=== PATIENT | male | born 1945 | race Caucasian/White ===

== ENCOUNTER 2024-09-10 17:20 | Inpatient (IN) | payer OTHER ==
[~2024-09-10] VITALS: Ht 167.6 cm; Wt 67.1 kg
[2024-09-10 18:38] LABS: BASOPHILS % (AUTO) 0.1 % (0.0-2.0); HEMATOCRIT 28 % (39-51); HEMOGLOBIN 9.6 g/dL (13.5-17.5); LYMPHOCYTES # (AUTO) 0.3 K/uL (0.8-4.8); LYMPHOCYTES % (AUTO) 2.3 % (20.0-44.0); MEAN CORPUSCULAR HEMOGLOBIN 33 PG (26.0-33.0); MEAN CORPUSCULAR HGB CONC 34 g/dl (31.0-36.0); MEAN CORPUSCULAR VOLUME 95 fL (80-96); MONOCYTES # (AUTO) 0.2 K/uL (0.1-1.30); MONOCYTES % (AUTO) 1.5 % (2.0-12.0); NEUTROPHILS # (AUTO) 12.7 K/uL (1.8-8.9); NEUTROPHILS % (AUTO) 96.1 % (43.0-81.0); PLATELET COUNT (AUTO) 133 K/uL (150-450); RED BLOOD CELL COUNT(AUTO) 2.93 MIL/uL (4.5-6.0); WHITE BLOOD COUNT (AUTO) 13.2 K/uL (4.3-11.0)
[2024-09-10 18:52] LABS: INR 1.06 (0.91-1.10); PARTIAL THROMBOPLASTIN TIME 31.8 SEC (24.3-34.3); PROTHROMBIN TIME 11.2 SECS (9.2-11.1)
[2024-09-10 19:01] LABS: ALBUMIN 2.2 g/dL (3.4-5.0); BILIRUBIN,DIRECT 0.1 mg/dL (0.0-0.2); BILIRUBIN,TOTAL 0.2 mg/dL (0.2-1.0); TOTAL PROTEIN, SERUM 6.4 g/dL (6.4-8.2)
[2024-09-10 19:02] LABS: LACTIC ACID 1.8 mmol/L (0.4-2.0)
[2024-09-10] MEDS: IV NS 0.9% 1,000 ML BAG IV ONE (19:40)
[2024-09-10] MEDS ORDERED: CEFEPIME 1 GM VIAL ONE (19:46)
[2024-09-10] MEDS: CEFEPIME 1 GM in IV D5W 50 ML IV ONE (19:50)
[2024-09-10] MEDS ORDERED: OSELTAMIVIR PHOSPHATE 75 MG CAPSULE ONE (20:33)
[2024-09-10] MEDS ORDERED: VANCOMYCIN 1 GM /D5W 250 ML PB IV ONE (20:33)
[2024-09-10] MEDS: VANCOMYCIN 1 GM in IV D5W 250 ML IV ONE (20:45)
[2024-09-10] MEDS: OSELTAMIVIR PHOSPHATE 75 MG CAPSULE PO ONE (20:50)
[2024-09-10 20:55] VITALS: O2SAT 88; O2SAT 90
[2024-09-10 21:31] LABS: ABG BASE EXCESS -11.3 mmol/L (-2.0-3.0); ABG OXYGEN SATURATION 84.7 % (94.0-98.0); ABG PCO2 30.4 mmHg (35.0-48.0); ABG PH 7.286 (7.350-7.450); ABG PO2 50.8 mmHg (83.0-108.0); ABG TOTAL HEMOGLOBIN 10.3 G/dL (13.5-17.5); COHb 0.2 % (0.5-1.5); O2Hb 84.5 % (94.0-97.0); SITE, ABG LEFT RADIAL
[2024-09-10 21:43] LABS: APPEARANCE,URINE CLEAR (CLEAR); BILIRUBIN,URINE NEGATIVE (NEGATIVE); BLOOD, URINE TRACE-INTA Ery/uL (NEGATIVE); COLOR,URINE YELLOW (YELLOW); KETONES,URINE NEGATIVE (NEGATIVE); LEUKOCYTE ESTERASE ,URINE NEGATIVE (NEGATIVE); NITRITE, URINE NEGATIVE (NEGATIVE); PH,URINE 5.5 (5.0-8.0); PROTEIN,URINE 2+ mg/dl (NEGATIVE); UGLUCOSE 1+ mg/dL (NEGATIVE); UROBILINOGEN,URINE 0.2 EU/dL (0.2)
[2024-09-10 21:44] LABS: ADD URINE CULTURE NO; BACTERIA,URINE Few /HPF (None Seen); SQUAMOUS EPITHELIAL CELL,UR Rare /HPF (None Seen); WBC,URINE 0-2 /HPF (0-3)
[2024-09-10 22:10] VITALS: O2SAT 90
[2024-09-10 22:23] LABS: ABG BASE EXCESS -11.1 mmol/L (-2.0-3.0); ABG OXYGEN SATURATION 88.8 % (94.0-98.0); ABG PCO2 31.2 mmHg (35.0-48.0); ABG PH 7.283 (7.350-7.450); ABG PO2 58.7 mmHg (83.0-108.0); ABG TOTAL HEMOGLOBIN 10.1 G/dL (13.5-17.5); COHb 0.2 % (0.5-1.5); MetHb 0.3 % (0.0-1.5); O2Hb 88.4 % (94.0-97.0)
[2024-09-10] MEDS ORDERED: ONDANSETRON HCL/PF 4 MG/2 ML VIAL IVP PRN (23:00)
[2024-09-10] MEDS ORDERED: DEXTROSE 50%-WATER 50 ML DISP.SYRIN IV PRN (23:00)
[2024-09-10 23:43] VITALS: O2SAT 90
[2024-09-11] VITALS (17 sets, daily range): BP systolic 101–152; BP diastolic 49–72; TEMP 97.4; O2SAT 89–98
[2024-09-11] MEDS ORDERED: ENOXAPARIN SODIUM 30 MG/0.3 ML DISP.SYRIN ONE (00:16)
[2024-09-11] MEDS: ENOXAPARIN SODIUM 30 MG/0.3 ML DISP.SYRIN SQ SCH (00:17)
[2024-09-11] MEDS: BLOOD SUGAR DIAGNOSTIC 1 EACH STRIP IN SCH (00:21)
[2024-09-11] MEDS: INSULIN REGULAR, HUMAN 100 UNIT/ML 3 ML VIAL SQ PRN (01:01)
[2024-09-11 06:46] LABS: HEMATOCRIT 29 % (39-51); HEMOGLOBIN 9.7 g/dL (13.5-17.5); LYMPHOCYTES # (AUTO) 0.3 K/uL (0.8-4.8); LYMPHOCYTES % (AUTO) 1.6 % (20.0-44.0); MEAN CORPUSCULAR HEMOGLOBIN 32 PG (26.0-33.0); MEAN CORPUSCULAR HGB CONC 33 g/dl (31.0-36.0); MEAN CORPUSCULAR VOLUME 96 fL (80-96); MONOCYTES # (AUTO) 0.2 K/uL (0.1-1.30); MONOCYTES % (AUTO) 1.2 % (2.0-12.0); NEUTROPHILS # (AUTO) 16.9 K/uL (1.8-8.9); NEUTROPHILS % (AUTO) 97.2 % (43.0-81.0); PLATELET COUNT (AUTO) 141 K/uL (150-450); RED BLOOD CELL COUNT(AUTO) 3.06 MIL/uL (4.5-6.0); RED CELL DISTRIBUTION WIDTH 16.3 % (11.5-15.0); WHITE BLOOD COUNT (AUTO) 17.4 K/uL (4.3-11.0)
[2024-09-11 07:09] LABS: ALANINE AMINOTRANSFERASE 43 U/L (12-78); ALBUMIN 1.9 g/dL (3.4-5.0); ALKALINE PHOSPHATASE 93 U/L (46-116); BILIRUBIN,DIRECT 0.1 mg/dL (0.0-0.2); BILIRUBIN,TOTAL 1.3 mg/dL (0.2-1.0); CALCIUM, SERUM 8.6 mg/dL (8.5-10.1); CARBON DIOXIDE 20 mmol/L (21-32); CHLORIDE 102 mmol/L (98-107); CREATININE 2.9 mg/dL (0.6-1.3); GLUCOSE 141 mg/dL (74-106); NT-PRO BNP 13910 pg/mL (0-125); PHOSPHORUS 5.8 mg/dL (2.5-4.9); SODIUM SERUM 131 mmol/L (136-145); TOTAL PROTEIN, SERUM 6.1 g/dL (6.4-8.2)
[2024-09-11 07:10] LABS: UREA NITROGEN, BLOOD 87 mg/dL (7-18)
[2024-09-11] MEDS: CEFEPIME 2 GM in IV D5W 100 ML IV SCH (08:50)
[2024-09-11] MEDS ORDERED: PANTOPRAZOLE 40 MG VIAL ONE (09:01)
[2024-09-11] MEDS: PANTOPRAZOLE 40 MG VIAL IV SCH (09:08)
[2024-09-11 09:09] LABS: ASPARTATE AMINOTRANSFERASE 78 U/L (15-37)
[2024-09-11 10:06] LABS: ABG BASE EXCESS -12.2 mmol/L (-2.0-3.0); ABG OXYGEN SATURATION 91.1 % (94.0-98.0); ABG PCO2 29.5 mmHg (35.0-48.0); ABG PH 7.274 (7.350-7.450); ABG PO2 63.5 mmHg (83.0-108.0); ABG TOTAL HEMOGLOBIN 10.7 G/dL (13.5-17.5); COHb 0.2 % (0.5-1.5); MetHb 0.3 % (0.0-1.5); O2Hb 90.6 % (94.0-97.0); SITE, ABG LEFT RADIAL
[2024-09-11] MEDS ORDERED: CLOP75TA15 PO (10:58)
[2024-09-11] MEDS ORDERED: ASCO-352 PO (10:58)
[2024-09-11] MEDS ORDERED: ATOR20TA PO (10:58)
[2024-09-11] MEDS ORDERED: CHOL200059 PO (10:58)
[2024-09-11] MEDS ORDERED: INSU100I30 SQ (10:58)
[2024-09-11] MEDS ORDERED: ACET325T53 PO (10:58)
[2024-09-11] MEDS ORDERED: FERR325T24 PO (10:58)
[2024-09-11] MEDS ORDERED: FOLI0.8T43 PO (10:58)
[2024-09-11] MEDS ORDERED: THIA100T88 PO (10:58)
[2024-09-11] MEDS ORDERED: LINA5TAB PO (10:58)
[2024-09-11] MEDS ORDERED: TIMO5DRO35 RIGHTEYE (10:58)
[2024-09-11] MEDS ORDERED: SODI325T PO (10:58)
[2024-09-11] MEDS ORDERED: GLIP10TA11 PO (10:58)
[2024-09-11] MEDS ORDERED: AMLO-213 PO (10:58)
[2024-09-11] MEDS ORDERED: GABA-532 PO (10:58)
[2024-09-11] MEDS ORDERED: INSU100V3 SQ (10:58)
[2024-09-11] MEDS ORDERED: NATE120T6 PO (10:58)
[2024-09-11] MEDS ORDERED: AZIT500T4 PO (10:58)
[2024-09-11] MEDS ORDERED: FUROSEMIDE 40 MG/4 ML VIAL ONE ×3 (11:40→19:29)
[2024-09-11] MEDS: FUROSEMIDE 100 MG/10 ML VIAL IV SCH (11:44)
[2024-09-11 12:14] LABS: ANISOCYTOSIS 1+; BAND % (MANUAL) 10 % (0.0-5.0); LYMPHOCYTES % (MANUAL) 3 % (16-48); MONOCYTES % (MANUAL) 1 % (0-11.0); NEUTROPHILS % (MANUAL) 86 (42-76); PLATELET ESTIMATE DECREASED
[2024-09-11] MEDS: OSELTAMIVIR PHOSPHATE SUSP 6 MG/ML BOTTLE PO SCH (14:00)
[2024-09-12] VITALS (37 sets, daily range): BP systolic 94–150; BP diastolic 42–89; TEMP 97.6–98.2; O2SAT 83–100
[2024-09-12 04:03] LABS: BASOPHILS % (AUTO) 0.1 % (0.0-2.0); HEMATOCRIT 29 % (39-51); HEMOGLOBIN 9.7 g/dL (13.5-17.5); LYMPHOCYTES # (AUTO) 0.4 K/uL (0.8-4.8); LYMPHOCYTES % (AUTO) 1.4 % (20.0-44.0); MEAN CORPUSCULAR HEMOGLOBIN 31 PG (26.0-33.0); MEAN CORPUSCULAR HGB CONC 33 g/dl (31.0-36.0); MEAN CORPUSCULAR VOLUME 95 fL (80-96); MONOCYTES # (AUTO) 0.6 K/uL (0.1-1.30); MONOCYTES % (AUTO) 2.2 % (2.0-12.0); NEUTROPHILS # (AUTO) 24.5 K/uL (1.8-8.9); NEUTROPHILS % (AUTO) 96.3 % (43.0-81.0); PLATELET COUNT (AUTO) 156 K/uL (150-450); RED BLOOD CELL COUNT(AUTO) 3.07 MIL/uL (4.5-6.0); RED CELL DISTRIBUTION WIDTH 16.5 % (11.5-15.0); WHITE BLOOD COUNT (AUTO) 25.5 K/uL (4.3-11.0)
[2024-09-12 04:16] LABS: ALBUMIN 1.9 g/dL (3.4-5.0); BILIRUBIN,TOTAL 0.3 mg/dL (0.2-1.0); CALCIUM, SERUM 8.6 mg/dL (8.5-10.1); CREATININE 3.2 mg/dL (0.6-1.3); MAGNESIUM 2.2 mg/dL (1.8-2.4); PHOSPHORUS 6.7 mg/dL (2.5-4.9); POTASSIUM 4.5 mmol/L (3.5-5.1); TOTAL PROTEIN, SERUM 6.3 g/dL (6.4-8.2)
[2024-09-12 07:32] LABS: APPEARANCE,URINE CLEAR (CLEAR); BILIRUBIN,URINE NEGATIVE (NEGATIVE); BLOOD, URINE 1+ Ery/uL (NEGATIVE); COLOR,URINE YELLOW (YELLOW); KETONES,URINE NEGATIVE (NEGATIVE); LEUKOCYTE ESTERASE ,URINE NEGATIVE (NEGATIVE); NITRITE, URINE NEGATIVE (NEGATIVE); PH,URINE 5.5 (5.0-8.0); PROTEIN,URINE TRACE mg/dl (NEGATIVE); UGLUCOSE NEGATIVE (NEGATIVE); UROBILINOGEN,URINE 0.2 EU/dL (0.2)
[2024-09-12 07:46] LABS: ADD URINE CULTURE NO; BACTERIA,URINE Rare /HPF (None Seen); SQUAMOUS EPITHELIAL CELL,UR Few /HPF (None Seen); URINE AMORPHOUS URATE Few /HPF (None Seen); WBC,URINE 0-2 /HPF (0-3)
[2024-09-12 08:02] LABS: EOSINOPHIL,URINE None Seen
[2024-09-12 08:14] LABS: CREATININE, URINE 17.3 MG/DL (30.0-125.0); URINE TOTAL PROTEIN 41.1 mg/dL (0-11.9)
[2024-09-12] MEDS ORDERED: VANCOMYCIN 1 GM in IV D5W 250ml IV SCH (09:00)
[2024-09-12] MEDS: methylPREDNISolone SOD SUCC 125 MG/2ML VIAL IV SCH (17:13)
[2024-09-12] MEDS: IV NS 0.9% 250 ML IV PRN (18:25)
[2024-09-12 18:43] LABS: INR 1.03 (0.91-1.10); PARTIAL THROMBOPLASTIN TIME 36.8 SEC (24.3-34.3); PROTHROMBIN TIME 10.9 SECS (9.2-11.1)
[2024-09-12] MEDS ORDERED: HEPARIN SODIUM,PORCINE/PF 50 UNIT/5 ML DISP.SYRIN IV ONE (19:30)
[2024-09-12] MEDS: VANCOMYCIN 1 GM in IV D5W 250ml IV SCH (20:00)
[2024-09-12] MEDS: HEPARIN INFUSION/D5W 500 ML IV PRN (20:46)
[2024-09-12] MEDS: HEPARIN SODIUM, PORCINE 5000 UNITS/1 ML VIAL IV ONE (20:46)
[2024-09-13] VITALS (27 sets, daily range): BP systolic 116–151; BP diastolic 53–94; TEMP 97.4–98.4; O2SAT 75–100
[2024-09-13 03:28] LABS: BASOPHILS # (AUTO) 0.1 K/uL (0.0-0.2); BASOPHILS % (AUTO) 0.5 % (0.0-2.0); HEMATOCRIT 31 % (39-51); HEMOGLOBIN 10.1 g/dL (13.5-17.5); LYMPHOCYTES # (AUTO) 0.1 K/uL (0.8-4.8); LYMPHOCYTES % (AUTO) 0.5 % (20.0-44.0); MEAN CORPUSCULAR HEMOGLOBIN 31 PG (26.0-33.0); MEAN CORPUSCULAR HGB CONC 32 g/dl (31.0-36.0); MEAN CORPUSCULAR VOLUME 97 fL (80-96); MONOCYTES # (AUTO) 0.6 K/uL (0.1-1.30); MONOCYTES % (AUTO) 2.1 % (2.0-12.0); NEUTROPHILS # (AUTO) 27.3 K/uL (1.8-8.9); NEUTROPHILS % (AUTO) 96.9 % (43.0-81.0); PLATELET COUNT (AUTO) 167 K/uL (150-450); RED BLOOD CELL COUNT(AUTO) 3.22 MIL/uL (4.5-6.0); WHITE BLOOD COUNT (AUTO) 28.1 K/uL (4.3-11.0)
[2024-09-13 03:38] LABS: CALCIUM, SERUM 8.4 mg/dL (8.5-10.1); CREATININE 3.6 mg/dL (0.6-1.3); MAGNESIUM 2.2 mg/dL (1.8-2.4)
[2024-09-13 03:47] LABS: PHOSPHORUS 8.3 mg/dL (2.5-4.9)
[2024-09-13 08:10] LABS: PTH, INTACT 165 pg/mL (15-65)
[2024-09-13] MEDS: CITRIC ACID/SODIUM CITRATE (BICITRA)15 ML UDC PO SCH (13:00)
[2024-09-13] MEDS: SEVELAMER CARBONATE 800 MG TABLET PO SCH (13:00)
[2024-09-13] MEDS: APIXABAN 5 MG TABLET PO SCH (20:34)
[2024-09-14] VITALS (32 sets, daily range): BP systolic 101–158; BP diastolic 34–103; TEMP 97.1–97.9; O2SAT 57–98
[2024-09-14 03:53] LABS: CALCIUM, SERUM 8.3 mg/dL (8.5-10.1); POTASSIUM 4.8 mmol/L (3.5-5.1)
[2024-09-14] MEDS: CEFEPIME 2 GM in IV D5W 100 ML IV SCH (08:14)
[2024-09-14 10:10] LABS: *SPE A/G RATIO 0.7 (0.7-1.7); *SPE ALBUMIN 2.3 g/dL (2.9-4.4); *SPE ALPHA-1-GLOBULIN 0.5 g/dL (0.0-0.4); *SPE BETA GLOBULIN 0.7 g/dL (0.7-1.3); *SPE GLOBULIN, TOTAL 3.1 g/dL (2.2-3.9); *SPE M-SPIKE Not Observed g/dL (Not Observed); *SPE PROTEIN TOTAL 5.4 g/dL (6.0-8.5); *SPEGAMMA GLOBULIN 0.9 g/dL (0.4-1.8)
[2024-09-14] MEDS: risperiDONE-M 0.5 MG TAB.RAPDIS PO SCH (12:30)
[2024-09-15] VITALS (35 sets, daily range): BP systolic 94–173; BP diastolic 42–107; TEMP 97.2–97.7; O2SAT 78–100
[2024-09-15 05:11] LABS: CALCIUM, SERUM 8.7 mg/dL (8.5-10.1); CREATININE 4.4 mg/dL (0.6-1.3); POTASSIUM 4.9 mmol/L (3.5-5.1)
[2024-09-15 05:26] LABS: ALBUMIN 1.8 g/dL (3.4-5.0); BILIRUBIN,DIRECT 0.1 mg/dL (0.0-0.2); BILIRUBIN,TOTAL 0.4 mg/dL (0.2-1.0); TOTAL PROTEIN, SERUM 6.6 g/dL (6.4-8.2)
[2024-09-15] MEDS: VALPROATE 125 MG in IV D5W 100 ML IV SCH (13:51)
[2024-09-15] MEDS: HEPARIN SODIUM, PORCINE 5000 UNITS/1 ML VIAL IV ONE (13:54)
[2024-09-15] MEDS: HEPARIN INFUSION/D5W 500 ML IV PRN (13:57)
[2024-09-15] MEDS: hydrALAZINE HCL IV 20 MG VIAL IV PRN (22:52)
[2024-09-16] VITALS (54 sets, daily range): BP systolic 89–186; BP diastolic 40–156; TEMP 97.2–98.2; O2SAT 74–99
[2024-09-16 05:40] LABS: CALCIUM, SERUM 8.9 mg/dL (8.5-10.1); CREATININE 2.9 mg/dL (0.6-1.3); POTASSIUM 3.6 mmol/L (3.5-5.1)
[2024-09-16] MEDS: Z GUARD REMEDY 4 OZ OINT TP PRN (08:14)
[2024-09-16 17:47] LABS: ABG BASE EXCESS 0.8 mmol/L (-2.0-3.0); ABG OXYGEN SATURATION 99.6 % (94.0-98.0); ABG PH 7.538 (7.350-7.450); ABG PO2 496.2 mmHg (83.0-108.0); ABG TOTAL HEMOGLOBIN 11.1 G/dL (13.5-17.5); COHb 0.3 % (0.5-1.5); MetHb 0.1 % (0.0-1.5); O2Hb 99.2 % (94.0-97.0); SITE, ABG RIGHT RADIAL
[2024-09-17] VITALS (87 sets, daily range): BP systolic 59–167; BP diastolic 40–106; TEMP 97.2–98.1; O2SAT 76–100
[2024-09-17 04:47] LABS: BASOPHILS # (AUTO) 0.1 K/uL (0.0-0.2); BASOPHILS % (AUTO) 0.4 % (0.0-2.0); HEMATOCRIT 30 % (39-51); HEMOGLOBIN 10.2 g/dL (13.5-17.5); LYMPHOCYTES # (AUTO) 0.1 K/uL (0.8-4.8); LYMPHOCYTES % (AUTO) 0.8 % (20.0-44.0); MEAN CORPUSCULAR HEMOGLOBIN 32 PG (26.0-33.0); MEAN CORPUSCULAR HGB CONC 34 g/dl (31.0-36.0); MEAN CORPUSCULAR VOLUME 94 fL (80-96); MONOCYTES # (AUTO) 0.4 K/uL (0.1-1.30); MONOCYTES % (AUTO) 2.1 % (2.0-12.0); NEUTROPHILS # (AUTO) 18.3 K/uL (1.8-8.9); NEUTROPHILS % (AUTO) 96.7 % (43.0-81.0); PLATELET COUNT (AUTO) 113 K/uL (150-450); RED CELL DISTRIBUTION WIDTH 16.6 % (11.5-15.0); WHITE BLOOD COUNT (AUTO) 18.9 K/uL (4.3-11.0)
[2024-09-17 05:04] LABS: CALCIUM, SERUM 8.8 mg/dL (8.5-10.1); CREATININE 2.8 mg/dL (0.6-1.3); MAGNESIUM 2.4 mg/dL (1.8-2.4); PHOSPHORUS 6.4 mg/dL (2.5-4.9)
[2024-09-17] MEDS: AMIODARONE 150 MG/3 ML VIAL IV ONE (05:27)
[2024-09-17] MEDS: AMIODARONE 150 MG in IV D5W 100 ML IV ONE (05:33)
[2024-09-17] MEDS: AMIODARONE 450 MG in IV D5W 241 ML IV PRN (05:49)
[2024-09-17] MEDS: ALBUMIN 25% 25 GM in PREMIX 1 EA IV PRN (22:33)
[2024-09-17] MEDS: VANCOMYCIN POST DIALYSIS 500MG IV PRN (23:40)
[2024-09-18] VITALS (68 sets, daily range): BP systolic 86–144; BP diastolic 38–63; TEMP 96.5–98; O2SAT 94–100
[2024-09-18 04:44] LABS: BILIRUBIN,TOTAL 0.7 mg/dL (0.2-1.0); CALCIUM, SERUM 7.9 mg/dL (8.5-10.1); PHOSPHORUS 7.4 mg/dL (2.5-4.9); POTASSIUM 4.2 mmol/L (3.5-5.1); TOTAL PROTEIN, SERUM 5.2 g/dL (6.4-8.2)
[2024-09-18 04:46] LABS: BASOPHILS # (AUTO) 0.1 K/uL (0.0-0.2); BASOPHILS % (AUTO) 0.3 % (0.0-2.0); LYMPHOCYTES # (AUTO) 0.2 K/uL (0.8-4.8); LYMPHOCYTES % (AUTO) 0.9 % (20.0-44.0); MEAN CORPUSCULAR HEMOGLOBIN 32 PG (26.0-33.0); MEAN CORPUSCULAR HGB CONC 34 g/dl (31.0-36.0); MEAN CORPUSCULAR VOLUME 94 fL (80-96); MONOCYTES # (AUTO) 0.4 K/uL (0.1-1.30); MONOCYTES % (AUTO) 1.5 % (2.0-12.0); NEUTROPHILS # (AUTO) 23.5 K/uL (1.8-8.9); NEUTROPHILS % (AUTO) 97.3 % (43.0-81.0); PLATELET COUNT (AUTO) 75 K/uL (150-450); RED CELL DISTRIBUTION WIDTH 16.4 % (11.5-15.0); WHITE BLOOD COUNT (AUTO) 24.1 K/uL (4.3-11.0)
[2024-09-18 05:14] LABS: HEMATOCRIT 18 % (39-51); HEMOGLOBIN 6.1 g/dL (13.5-17.5); RED BLOOD CELL COUNT(AUTO) 1.93 MIL/uL (4.5-6.0)
[2024-09-18 05:26] LABS: LYMPHOCYTES % (MANUAL) 1 % (16-48); MONOCYTES % (MANUAL) 1 % (0-11.0); NEUTROPHILS % (MANUAL) 98 (42-76); PLATELET ESTIMATE DECREASED
[2024-09-18 05:27] LABS: ANISOCYTOSIS 1+
[2024-09-18 07:17] LABS: BASOPHILS % (AUTO) 0.1 % (0.0-2.0); LYMPHOCYTES # (AUTO) 0.2 K/uL (0.8-4.8); LYMPHOCYTES % (AUTO) 0.9 % (20.0-44.0); MEAN CORPUSCULAR HEMOGLOBIN 31 PG (26.0-33.0); MEAN CORPUSCULAR HGB CONC 33 g/dl (31.0-36.0); MEAN CORPUSCULAR VOLUME 93 fL (80-96); MONOCYTES # (AUTO) 0.2 K/uL (0.1-1.30); MONOCYTES % (AUTO) 0.9 % (2.0-12.0); NEUTROPHILS # (AUTO) 23.3 K/uL (1.8-8.9); NEUTROPHILS % (AUTO) 98.1 % (43.0-81.0); PLATELET COUNT (AUTO) 83 K/uL (150-450); RED CELL DISTRIBUTION WIDTH 16.4 % (11.5-15.0); WHITE BLOOD COUNT (AUTO) 23.7 K/uL (4.3-11.0)
[2024-09-18 07:24] LABS: RED BLOOD CELL COUNT(AUTO) 1.79 MIL/uL (4.5-6.0)
[2024-09-18 07:26] LABS: HEMOGLOBIN 5.5 g/dL (13.5-17.5)
[2024-09-18 07:27] LABS: HEMATOCRIT 17 % (39-51)
[2024-09-18 07:41] LABS: ANISOCYTOSIS 1+; PLATELET ESTIMATE DECREASED
[2024-09-18 10:06] LABS: HEMOGLOBIN 5.3 g/dL (13.5-17.5)
[2024-09-18 12:49] LABS: BILIRUBIN,TOTAL 0.6 mg/dL (0.2-1.0)
[2024-09-18 21:58] LABS: HEMOGLOBIN 6.7 g/dL (13.5-17.5)
[2024-09-19] VITALS (50 sets, daily range): BP systolic 84–155; BP diastolic 38–65; TEMP 77.5–99.1; O2SAT 87–100
[2024-09-19 04:50] LABS: CREATININE 4.4 mg/dL (0.6-1.3)
[2024-09-19 04:54] LABS: HEMOGLOBIN 6.4 g/dL (13.5-17.5)
[2024-09-19 11:19] LABS: HEMOGLOBIN 6.1 g/dL (13.5-17.5)
[2024-09-19] MEDS ORDERED: ALBUMIN 25% 12.5 GM/50 ML BOTTLE IV ONE (12:30)
[2024-09-19] MEDS: VALPROATE 250 MG in IV D5W 100 ML IV SCH (14:03)
[2024-09-19] MEDS: PANTOPRAZOLE 40 MG VIAL IV SCH (15:21)
[2024-09-19] MEDS: EPOETIN ALFA (10,000 UNIT) 10,000 UNIT/ML VIAL SQ SCH (16:18)
[2024-09-19 19:03] LABS: HEMOGLOBIN 7.4 g/dL (13.5-17.5)
[2024-09-19] MEDS: METRONIDAZOLE 500MG/ NS 100ML 500 MG in PREMIX 1 EA IV SCH (20:26)
[2024-09-20] VITALS (30 sets, daily range): BP systolic 108–171; BP diastolic 41–79; TEMP 97.7–98.1; O2SAT 82–100
[2024-09-20 02:33] LABS: HEMOGLOBIN 7.2 g/dL (13.5-17.5)
[2024-09-20 05:03] LABS: ALBUMIN 2.1 g/dL (3.4-5.0); BILIRUBIN,TOTAL 0.6 mg/dL (0.2-1.0); CALCIUM, SERUM 7.3 mg/dL (8.5-10.1); CREATININE 3.9 mg/dL (0.6-1.3); POTASSIUM 4.5 mmol/L (3.5-5.1)
[2024-09-20 10:36] LABS: HEMOGLOBIN 7.4 g/dL (13.5-17.5)
[2024-09-20 17:39] LABS: BASOPHILS % (AUTO) 0.1 % (0.0-2.0); HEMATOCRIT 21 % (39-51); HEMOGLOBIN 7.5 g/dL (13.5-17.5); LYMPHOCYTES # (AUTO) 0.1 K/uL (0.8-4.8); LYMPHOCYTES % (AUTO) 0.4 % (20.0-44.0); MEAN CORPUSCULAR HEMOGLOBIN 33 PG (26.0-33.0); MEAN CORPUSCULAR HGB CONC 36 g/dl (31.0-36.0); MEAN CORPUSCULAR VOLUME 92 fL (80-96); MONOCYTES # (AUTO) 0.6 K/uL (0.1-1.30); MONOCYTES % (AUTO) 2.3 % (2.0-12.0); NEUTROPHILS % (AUTO) 97.2 % (43.0-81.0); RED BLOOD CELL COUNT(AUTO) 2.31 MIL/uL (4.5-6.0); RED CELL DISTRIBUTION WIDTH 15.4 % (11.5-15.0); WHITE BLOOD COUNT (AUTO) 26.8 K/uL (4.3-11.0)
[2024-09-20 17:56] LABS: RHEUMATOID FACTOR SCREEN NEGATIVE (NEGATIVE)
[2024-09-20 18:00] LABS: FIBRINOGEN ACTIVITY 159 Mg/dL (213-485); PARTIAL THROMBOPLASTIN TIME 33.3 SEC (24.3-34.3); PROTHROMBIN TIME 13.5 SECS (9.2-11.1)
[2024-09-20 18:03] LABS: D-DIMER > 35.20 mg/L(FEU (0.17-0.50)
[2024-09-20 18:07] LABS: IRON, SERUM 25 ug/dl (50-175); PLATELET COUNT (AUTO) 40 K/uL (150-450); TOTAL IRON BINDING CAPACITY 99 ug/dl (250-450)
[2024-09-20 18:47] LABS: FERRITIN 2575 ng/mL (8-388)
[2024-09-20 18:53] LABS: BAND % (MANUAL) 1 % (0.0-5.0); NEUTROPHILS % (MANUAL) 93 (42-76)
[2024-09-20 18:54] LABS: LYMPHOCYTES % (MANUAL) 5 % (16-48); MONOCYTES % (MANUAL) 1 % (0-11.0); PLATELET ESTIMATE DECREASED
[2024-09-20 18:55] LABS: ANISOCYTOSIS 1+; HYPOCHROMASIA 1+
[2024-09-21] VITALS (7 sets, daily range): BP systolic 140–156; BP diastolic 48–61; TEMP 97.5–98.2; O2SAT 92–99
[2024-09-21 07:49] LABS: CALCIUM, SERUM 7.7 mg/dL (8.5-10.1); CREATININE 3.5 mg/dL (0.6-1.3); POTASSIUM 4.6 mmol/L (3.5-5.1)
[2024-09-21 14:58] LABS: HEMOGLOBIN 7.4 g/dL (13.5-17.5)
[2024-09-21 17:39] LABS: BASOPHILS % (AUTO) 0.1 % (0.0-2.0); HEMATOCRIT 22 % (39-51); HEMOGLOBIN 7.3 g/dL (13.5-17.5); LYMPHOCYTES # (AUTO) 0.1 K/uL (0.8-4.8); LYMPHOCYTES % (AUTO) 0.3 % (20.0-44.0); MEAN CORPUSCULAR HEMOGLOBIN 31 PG (26.0-33.0); MEAN CORPUSCULAR HGB CONC 34 g/dl (31.0-36.0); MEAN CORPUSCULAR VOLUME 93 fL (80-96); MONOCYTES # (AUTO) 0.7 K/uL (0.1-1.30); MONOCYTES % (AUTO) 3.2 % (2.0-12.0); NEUTROPHILS # (AUTO) 20.2 K/uL (1.8-8.9); NEUTROPHILS % (AUTO) 96.4 % (43.0-81.0); RED BLOOD CELL COUNT(AUTO) 2.34 MIL/uL (4.5-6.0); RED CELL DISTRIBUTION WIDTH 15.4 % (11.5-15.0); WHITE BLOOD COUNT (AUTO) 20.9 K/uL (4.3-11.0)
[2024-09-21 17:55] LABS: PLATELET COUNT (AUTO) 48 K/uL (150-450)
[2024-09-21 21:00] LABS: ANISOCYTOSIS 1+; BAND % (MANUAL) 1 % (0.0-5.0); LYMPHOCYTES % (MANUAL) 3 % (16-48); MONOCYTES % (MANUAL) 2 % (0-11.0); NEUTROPHILS % (MANUAL) 94 (42-76); PLATELET ESTIMATE DECREASED
[2024-09-22] VITALS (9 sets, daily range): BP systolic 129–159; BP diastolic 41–60; TEMP 97.4–98.2; O2SAT 95–100
[2024-09-22 06:09] LABS: IMMUNOGLOBULIN A, SERUM 191 mg/dL (61-437); IMMUNOGLOBULIN G, SERUM 741 mg/dL (603-1613); IMMUNOGLOBULIN M, SERUM 90 mg/dL (15-143)
[2024-09-22 07:42] LABS: CALCIUM, SERUM 7.6 mg/dL (8.5-10.1); CREATININE 4.5 mg/dL (0.6-1.3); POTASSIUM 5.1 mmol/L (3.5-5.1)
[2024-09-22 07:55] LABS: BASOPHILS # (AUTO) 0.1 K/uL (0.0-0.2); BASOPHILS % (AUTO) 0.4 % (0.0-2.0); HEMATOCRIT 22 % (39-51); HEMOGLOBIN 7.2 g/dL (13.5-17.5); LYMPHOCYTES # (AUTO) 0.1 K/uL (0.8-4.8); LYMPHOCYTES % (AUTO) 0.3 % (20.0-44.0); MEAN CORPUSCULAR HEMOGLOBIN 31 PG (26.0-33.0); MEAN CORPUSCULAR HGB CONC 33 g/dl (31.0-36.0); MEAN CORPUSCULAR VOLUME 95 fL (80-96); MONOCYTES # (AUTO) 0.5 K/uL (0.1-1.30); NEUTROPHILS # (AUTO) 21.9 K/uL (1.8-8.9); NEUTROPHILS % (AUTO) 97.3 % (43.0-81.0); PLATELET COUNT (AUTO) 61 K/uL (150-450); RED CELL DISTRIBUTION WIDTH 15.4 % (11.5-15.0); WHITE BLOOD COUNT (AUTO) 22.5 K/uL (4.3-11.0)
[2024-09-22 08:05] LABS: INR 1.3 (0.91-1.10); PARTIAL THROMBOPLASTIN TIME 28.8 SEC (24.3-34.3); PROTHROMBIN TIME 13.5 SECS (9.2-11.1)
[2024-09-22 08:10] LABS: *ANA ANTI-CENTROMERE B AB <0.2 AI (0.0-0.9); *ANA ANTI-DNA(DS) AB, QN <1 IU/mL (0-9); *ANA ANTI-JO-1 <0.2 AI (0.0-0.9); *ANA ANTICHROMATIN ANTIBODY <0.2 AI (0.0-0.9); *ANA RNP ANTIBODIES <0.2 AI (0.0-0.9); *ANA SJOGREN'S ANTI-SS-A 0.2 AI (0.0-0.9); *ANA SJOGREN'S ANTI-SS-B <0.2 AI (0.0-0.9); *ANAANTI-SCLERODERMA-70 AB <0.2 AI (0.0-0.9); *ANASMITH AB <0.2 AI (0.0-0.9)
[2024-09-22 08:20] LABS: D-DIMER 14.6 mg/L(FEU (0.17-0.50)
[2024-09-22 09:07] LABS: FOLIC ACID 15.4 ng/mL (>3.0)
[2024-09-22] MEDS ORDERED: IOHEXOL-300 100 ML VIAL IV ONE (10:46)
[2024-09-22] MEDS ORDERED: CT SWABBABLE VALVE TRANS SET 1 EA INFUS.SET MC ONE (10:46)
[2024-09-22] MEDS ORDERED: IV NS 0.9% 250 ML IV ONE (10:48)
[2024-09-22 10:59] LABS: ANISOCYTOSIS 1+; LYMPHOCYTES % (MANUAL) 1 % (16-48); MONOCYTES % (MANUAL) 3 % (0-11.0); MYELOCYTES % 1 % (0-0); NEUTROPHILS % (MANUAL) 95 (42-76); PLATELET ESTIMATE DECREASED
[2024-09-22] MEDS: LORAZEPAM INJ 2 MG/ML VIAL IV ONE (11:13)
[2024-09-22] MEDS: methylPREDNISolone SOD SUCC 125 MG/2ML VIAL IV SCH (12:41)
[2024-09-22] MEDS ORDERED: IOHEXOL 240MG/ML 0 ML IV ONE (14:47)
[2024-09-22] MEDS ORDERED: HEPARIN SODIUM, PORCINE 1,000 UNIT/ML VIAL ONE (14:47)
[2024-09-22] MEDS ORDERED: LIDOCAINE 1% INJ 50 ML MDV IJ ONE (14:48)
[2024-09-22] MEDS: ACETAMINOPHEN 325 MG TABLET PO ONE ×2 (15:30→21:25)
[2024-09-22] MEDS: diphenhydrAMINE HCL 50 MG/ML VIAL IV ONE ×2 (15:30→21:24)
[2024-09-22] MEDS ORDERED: PHARMACY TO CHANGE PO MEDS TO GT/NG XX PRN (17:00)
[2024-09-22] MEDS ORDERED: FERROUS SULFATE UDC 300 MG/5 ML UDC GT SCH (17:00)
[2024-09-22] MEDS ORDERED: glipiZIDE 10 MG TABLET GT SCH (17:00)
[2024-09-22] MEDS: glipiZIDE 10 MG TABLET NG SCH (18:12)
[2024-09-22] MEDS: FERROUS SULFATE UDC 300 MG/5 ML UDC NG SCH (18:13)
[2024-09-22] MEDS: NATEGLINIDE 60 MG TABLET NG SCH (18:13)
[2024-09-22] MEDS: SEVELAMER CARBONATE 800 MG POWD.PACK NG SCH (18:13)
[2024-09-22] MEDS: ATORVASTATIN 10 MG TABLET NG SCH (21:45)
[2024-09-22] MEDS: GABAPENTIN 100 MG CAPSULE NG SCH (21:45)
[2024-09-22] MEDS: INSULIN GLARGINE, 100 UNIT/ML CARTRIDGE SQ SCH (23:11)
[2024-09-22] MEDS ORDERED: CEFEPIME 1 GM VIAL ONE (23:48)
[2024-09-22] MEDS: CEFEPIME 1 GM in IV D5W 50 ML IV SCH (23:50)
[2024-09-23] VITALS (9 sets, daily range): BP systolic 120–146; BP diastolic 47–68; TEMP 97.5–98.6; O2SAT 96–100
[2024-09-23 07:18] LABS: BASOPHILS # (AUTO) 0.1 K/uL (0.0-0.2); BASOPHILS % (AUTO) 0.3 % (0.0-2.0); CALCIUM, SERUM 7.8 mg/dL (8.5-10.1); CREATININE 3.8 mg/dL (0.6-1.3); HEMATOCRIT 22 % (39-51); HEMOGLOBIN 7.1 g/dL (13.5-17.5); LYMPHOCYTES # (AUTO) 0.2 K/uL (0.8-4.8); LYMPHOCYTES % (AUTO) 0.7 % (20.0-44.0); MEAN CORPUSCULAR HEMOGLOBIN 32 PG (26.0-33.0); MEAN CORPUSCULAR HGB CONC 32 g/dl (31.0-36.0); MEAN CORPUSCULAR VOLUME 97 fL (80-96); MONOCYTES # (AUTO) 1.4 K/uL (0.1-1.30); MONOCYTES % (AUTO) 5.1 % (2.0-12.0); NEUTROPHILS # (AUTO) 25.3 K/uL (1.8-8.9); NEUTROPHILS % (AUTO) 93.9 % (43.0-81.0); PLATELET COUNT (AUTO) 59 K/uL (150-450); POTASSIUM 4.2 mmol/L (3.5-5.1); RED BLOOD CELL COUNT(AUTO) 2.24 MIL/uL (4.5-6.0); RED CELL DISTRIBUTION WIDTH 16.1 % (11.5-15.0)
[2024-09-23] MEDS: VIT B CMPLX 3/FA/VIT C/BIOTIN 1 TAB TABLET NG SCH (08:20)
[2024-09-23] MEDS: ASCORBIC ACID 500 MG TABLET NG SCH (08:20)
[2024-09-23] MEDS: CHOLECALCIFEROL 1,000 UNIT TABLET (VIT D3) NG SCH (08:21)
[2024-09-23] MEDS: LINAGLIPTIN 5 MG TABLET NG SCH (08:21)
[2024-09-23] MEDS: THIAMINE HCL 100 MG TABLET NG SCH (08:22)
[2024-09-23] MEDS: AMLODIPINE BESYLATE 10 MG TABLET NG SCH (08:22)
[2024-09-23] MEDS: TIMOLOL 0.5% SOLN OPHTH 5 ML BOTTLE RIGHTEYE SCH (08:35)
[2024-09-23] MEDS: AMIODARONE HCL 200 MG TABLET NG SCH (09:27)
[2024-09-23] MEDS: NEPRO 1,000 ML BOTTLE GT PRN (09:59)
[2024-09-23 11:06] LABS: FREE KAPPA LT CHAINS SERUM 97.1 mg/L (3.3-19.4); FREE LAMBDA LT CHAIN SERUM 123.5 mg/L (5.7-26.3); KAPPA/LAMBDA RATIO SERUM 0.79 (0.26-1.65)
[2024-09-23 11:50] LABS: INR 1.41 (0.91-1.10); PARTIAL THROMBOPLASTIN TIME 29.6 SEC (24.3-34.3); PROTHROMBIN TIME 14.6 SECS (9.2-11.1)
[2024-09-23 11:53] LABS: D-DIMER 22.44 mg/L(FEU (0.17-0.50)
[2024-09-23 12:42] LABS: ANISOCYTOSIS 1+; LYMPHOCYTES % (MANUAL) 1 % (16-48); MONOCYTES % (MANUAL) 5 % (0-11.0); NEUTROPHILS % (MANUAL) 94 (42-76); PLATELET ESTIMATE DECREASED
[2024-09-23] MEDS: ALTEPLASE CATHFLO 2 MG/VIAL XX ONE (14:11)
[2024-09-23] MEDS: EPOETIN ALFA (10,000 UNIT) 10,000 UNIT/ML VIAL SQ SCH (14:26)
[2024-09-23 16:25] LABS: HEMOGLOBIN 6.8 g/dL (13.5-17.5)
[2024-09-24] VITALS (8 sets, daily range): BP systolic 116–139; BP diastolic 49–63; TEMP 97.3–98.1; O2SAT 98–100
[2024-09-24 07:26] LABS: INR 1.36 (0.91-1.10); PARTIAL THROMBOPLASTIN TIME 30.1 SEC (24.3-34.3); PROTHROMBIN TIME 14.1 SECS (9.2-11.1)
[2024-09-24 07:33] LABS: BASOPHILS # (AUTO) 0.1 K/uL (0.0-0.2); BASOPHILS % (AUTO) 0.2 % (0.0-2.0); HEMATOCRIT 23 % (39-51); HEMOGLOBIN 7.9 g/dL (13.5-17.5); LYMPHOCYTES # (AUTO) 0.2 K/uL (0.8-4.8); LYMPHOCYTES % (AUTO) 0.8 % (20.0-44.0); MEAN CORPUSCULAR HEMOGLOBIN 32 PG (26.0-33.0); MEAN CORPUSCULAR HGB CONC 34 g/dl (31.0-36.0); MEAN CORPUSCULAR VOLUME 96 fL (80-96); MONOCYTES # (AUTO) 1.2 K/uL (0.1-1.30); MONOCYTES % (AUTO) 5.1 % (2.0-12.0); NEUTROPHILS # (AUTO) 21.8 K/uL (1.8-8.9); NEUTROPHILS % (AUTO) 93.9 % (43.0-81.0); PLATELET COUNT (AUTO) 55 K/uL (150-450); RED BLOOD CELL COUNT(AUTO) 2.45 MIL/uL (4.5-6.0); RED CELL DISTRIBUTION WIDTH 15.2 % (11.5-15.0); WHITE BLOOD COUNT (AUTO) 23.2 K/uL (4.3-11.0)
[2024-09-24 07:38] LABS: CREATININE 4.5 mg/dL (0.6-1.3); POTASSIUM 4.6 mmol/L (3.5-5.1)
[2024-09-24 07:40] LABS: D-DIMER 22.83 mg/L(FEU (0.17-0.50)
[2024-09-24] MEDS: PANTOPRAZOLE 40 MG/PACK PACK NG SCH (08:54)
[2024-09-24] MEDS: methylPREDNISolone SOD SUCC 125 MG/2ML VIAL IV SCH (08:54)
[2024-09-24 09:28] LABS: LYMPHOCYTES % (MANUAL) 2 % (16-48); MONOCYTES % (MANUAL) 8 % (0-11.0); NEUTROPHILS % (MANUAL) 90 (42-76); PLATELET ESTIMATE DECREASED
[2024-09-24] MEDS: VALPROATE 250 MG in IV D5W 100 ML IV SCH (21:59)
[2024-09-25] VITALS: BP 135/64; TEMP 98.1; O2SAT 100
[2024-09-25] MEDS: ACETAMINOPHEN 650 MG/SUPP.RECT RC PRN (00:19)
[2024-09-25 04:00] VITALS: BP 91/41; TEMP 98.2; O2SAT 100
[2024-09-25 08:00] VITALS: BP 100/43; TEMP 98.1; O2SAT 98
[2024-09-25] MEDS: SERTRALINE HCL 25 MG TABLET NG SCH (08:32)
[2024-09-25 12:00] VITALS: BP 123/47; TEMP 98.2; O2SAT 99
[2024-09-25 13:15] LABS: BASOPHILS % (AUTO) 0.1 % (0.0-2.0); HEMOGLOBIN 8.1 g/dL (13.5-17.5); LYMPHOCYTES # (AUTO) 0.1 K/uL (0.8-4.8); MONOCYTES # (AUTO) 0.9 K/uL (0.1-1.30); MONOCYTES % (AUTO) 3.9 % (2.0-12.0); RED BLOOD CELL COUNT(AUTO) 2.52 MIL/uL (4.5-6.0); RED CELL DISTRIBUTION WIDTH 15.8 % (11.5-15.0)
[2024-09-25 13:23] LABS: HEMATOCRIT 25 % (39-51); LYMPHOCYTES % (AUTO) 0.5 % (20.0-44.0); MEAN CORPUSCULAR HEMOGLOBIN 32 PG (26.0-33.0); MEAN CORPUSCULAR HGB CONC 33 g/dl (31.0-36.0); MEAN CORPUSCULAR VOLUME 97 fL (80-96); NEUTROPHILS # (AUTO) 23.5 K/uL (1.8-8.9); NEUTROPHILS % (AUTO) 95.5 % (43.0-81.0); PLATELET COUNT (AUTO) 52 K/uL (150-450); WHITE BLOOD COUNT (AUTO) 24.6 K/uL (4.3-11.0)
[2024-09-25 13:34] LABS: CALCIUM, SERUM 7.7 mg/dL (8.5-10.1); CREATININE 4.7 mg/dL (0.6-1.3); POTASSIUM 4.4 mmol/L (3.5-5.1)
[2024-09-25 13:36] LABS: LYMPHOCYTES % (MANUAL) 2 % (16-48); MONOCYTES % (MANUAL) 2 % (0-11.0); NEUTROPHILS % (MANUAL) 96 (42-76); PLATELET ESTIMATE DECREASED
[2024-09-25 16:00] VITALS: BP 132/46; TEMP 97.3; O2SAT 100
[2024-09-25 20:00] VITALS: BP 124/45; TEMP 97.3; O2SAT 99
[2024-09-26] VITALS (10 sets, daily range): BP systolic 117–132; BP diastolic 42–53; TEMP 97.3–98.2; O2SAT 96–100
[2024-09-26 03:06] LABS: HEPATITIS B CORE AB, IgM Negative (Negative); HEPATITIS B CORE AB, TOTAL Negative (Negative); HEPATITIS B SURFACE AB Non Reactive (.)
[2024-09-26 07:40] LABS: INR 1.27 (0.91-1.10); PARTIAL THROMBOPLASTIN TIME 30.6 SEC (24.3-34.3); PROTHROMBIN TIME 13.3 SECS (9.2-11.1)
[2024-09-26 07:42] LABS: D-DIMER 14.04 mg/L(FEU (0.17-0.50)
[2024-09-26 07:50] LABS: CALCIUM, SERUM 7.1 mg/dL (8.5-10.1); CREATININE 4.8 mg/dL (0.6-1.3); POTASSIUM 4.2 mmol/L (3.5-5.1)
[2024-09-26 08:33] LABS: BASOPHILS % (AUTO) 0.2 % (0.0-2.0); HEMATOCRIT 23 % (39-51); HEMOGLOBIN 7.4 g/dL (13.5-17.5); LYMPHOCYTES # (AUTO) 0.2 K/uL (0.8-4.8); LYMPHOCYTES % (AUTO) 1.1 % (20.0-44.0); MEAN CORPUSCULAR HEMOGLOBIN 32 PG (26.0-33.0); MEAN CORPUSCULAR HGB CONC 33 g/dl (31.0-36.0); MEAN CORPUSCULAR VOLUME 98 fL (80-96); MONOCYTES # (AUTO) 0.7 K/uL (0.1-1.30); MONOCYTES % (AUTO) 3.7 % (2.0-12.0); NEUTROPHILS # (AUTO) 19.5 K/uL (1.8-8.9); RED CELL DISTRIBUTION WIDTH 16.4 % (11.5-15.0); WHITE BLOOD COUNT (AUTO) 20.5 K/uL (4.3-11.0)
[2024-09-26 08:40] LABS: PLATELET COUNT (AUTO) 49 K/uL (150-450)
[2024-09-26 09:26] LABS: PLATELET ESTIMATE DECREASED
[2024-09-26 09:28] LABS: LYMPHOCYTES % (MANUAL) 1 % (16-48); METAMYELOCYTES % 1 % (0-0); MONOCYTES % (MANUAL) 5 % (0-11.0); MYELOCYTES % 1 % (0-0); NEUTROPHILS % (MANUAL) 92 (42-76)
[2024-09-26 09:29] LABS: ANISOCYTOSIS 1+
[2024-09-26] MEDS: THERAHONEY GEL 1.5 OZ TUBE TP SCH (10:35)
[2024-09-26] MEDS ORDERED: FENTANYL PF 250MCG/5ML AMPUL IV PRN (15:00)
[2024-09-26] MEDS ORDERED: MIDAZOLAM HCL 2 MG/2ML VIAL IV PRN (15:00)
[2024-09-26] MEDS ORDERED: FLUMAZENIL 0.5 MG VIAL IV PRN (15:00)
[2024-09-26] MEDS ORDERED: NALOXONE PREFILLED SYRINGE 2 MG/2 ML SYRINGE IV PRN (15:00)
[2024-09-26] MEDS: ACETAMINOPHEN 325 MG TABLET PO ONE ×2 (22:29→22:36)
[2024-09-26] MEDS: diphenhydrAMINE HCL 50 MG/ML VIAL ONE (22:32)
[2024-09-26] MEDS: diphenhydrAMINE HCL 50 MG/ML VIAL IV ONE (22:34)
[2024-09-27] VITALS: BP 128/48; TEMP 97.3; O2SAT 98
[2024-09-27 04:00] VITALS: BP 125/44; TEMP 97.5; O2SAT 99
[2024-09-27 07:21] LABS: BASOPHILS % (AUTO) 0.2 % (0.0-2.0); HEMATOCRIT 21 % (39-51); HEMOGLOBIN 7.1 g/dL (13.5-17.5); LYMPHOCYTES # (AUTO) 0.2 K/uL (0.8-4.8); LYMPHOCYTES % (AUTO) 1.3 % (20.0-44.0); MEAN CORPUSCULAR HEMOGLOBIN 33 PG (26.0-33.0); MEAN CORPUSCULAR HGB CONC 34 g/dl (31.0-36.0); MEAN CORPUSCULAR VOLUME 98 fL (80-96); MONOCYTES # (AUTO) 0.3 K/uL (0.1-1.30); MONOCYTES % (AUTO) 2.4 % (2.0-12.0); NEUTROPHILS # (AUTO) 12.4 K/uL (1.8-8.9); NEUTROPHILS % (AUTO) 96.1 % (43.0-81.0); PLATELET COUNT (AUTO) 54 K/uL (150-450); RED BLOOD CELL COUNT(AUTO) 2.16 MIL/uL (4.5-6.0); RED CELL DISTRIBUTION WIDTH 16.2 % (11.5-15.0); WHITE BLOOD COUNT (AUTO) 12.9 K/uL (4.3-11.0)
[2024-09-27 07:32] LABS: INR 1.26 (0.91-1.10); PARTIAL THROMBOPLASTIN TIME 33.3 SEC (24.3-34.3); PROTHROMBIN TIME 13.2 SECS (9.2-11.1)
[2024-09-27 07:39] LABS: ALBUMIN 2.1 g/dL (3.4-5.0); BILIRUBIN,TOTAL 0.6 mg/dL (0.2-1.0); CALCIUM, SERUM 7.3 mg/dL (8.5-10.1); CREATININE 3.7 mg/dL (0.6-1.3); MAGNESIUM 2.3 mg/dL (1.8-2.4); PHOSPHORUS 4.8 mg/dL (2.5-4.9); POTASSIUM 3.2 mmol/L (3.5-5.1); TOTAL PROTEIN, SERUM 4.4 g/dL (6.4-8.2)
[2024-09-27 07:57] LABS: D-DIMER 11.24 mg/L(FEU (0.17-0.50)
[2024-09-27 08:00] VITALS: BP 105/50; TEMP 98.4; O2SAT 99
[2024-09-27 09:54] LABS: LYMPHOCYTES % (MANUAL) 1 % (16-48); MONOCYTES % (MANUAL) 5 % (0-11.0); PLATELET ESTIMATE DECREASED
[2024-09-27 09:55] LABS: ANISOCYTOSIS 1+; BAND % (MANUAL) 1 % (0.0-5.0); MYELOCYTES % 1 % (0-0); NEUTROPHILS % (MANUAL) 92 (42-76)
[2024-09-27 12:00] VITALS: BP 118/50; TEMP 98.6; O2SAT 99
[2024-09-27 16:00] VITALS: BP 100/50; TEMP 98.6; O2SAT 99
[2024-09-27 17:02] LABS: HEMOGLOBIN 7.4 g/dL (13.5-17.5)
[2024-09-27 20:00] VITALS: BP 92/49; TEMP 97.1; O2SAT 99
[2024-09-27 21:15] LABS: ABG BASE EXCESS -1.1 mmol/L (-2.0-3.0); ABG OXYGEN SATURATION 99.2 % (94.0-98.0); ABG PCO2 63.2 mmHg (35.0-48.0); ABG PH 7.242 (7.350-7.450); ABG PO2 224.7 mmHg (83.0-108.0); ABG TOTAL HEMOGLOBIN 8.2 G/dL (13.5-17.5); COHb 0.8 % (0.5-1.5); MetHb 0.1 % (0.0-1.5); O2Hb 98.3 % (94.0-97.0); SITE, ABG RIGHT BRACHIAL
[2024-09-27] MEDS ORDERED: ALBUMIN 25% 100 ML IV ONE (21:33)
[2024-09-28] VITALS: BP 97/49; TEMP 97.1; O2SAT 99
[2024-09-28 04:00] VITALS: BP 114/35; TEMP 97.1; O2SAT 99
[2024-09-28 07:59] LABS: INR 1.17 (0.91-1.10); PARTIAL THROMBOPLASTIN TIME 34.2 SEC (24.3-34.3); PROTHROMBIN TIME 12.3 SECS (9.2-11.1)
[2024-09-28 08:00] VITALS: BP 140/40; TEMP 97.5; O2SAT 100
[2024-09-28 08:05] LABS: D-DIMER 8.67 mg/L(FEU (0.17-0.50)
[2024-09-28 08:25] LABS: BASOPHILS % (AUTO) 0.4 % (0.0-2.0); EOSINOPHILS % (AUTO) 0.1 % (0.0-6.0); HEMATOCRIT 22 % (39-51); HEMOGLOBIN 7.4 g/dL (13.5-17.5); LYMPHOCYTES # (AUTO) 0.1 K/uL (0.8-4.8); LYMPHOCYTES % (AUTO) 1.3 % (20.0-44.0); MEAN CORPUSCULAR HEMOGLOBIN 33 PG (26.0-33.0); MEAN CORPUSCULAR HGB CONC 33 g/dl (31.0-36.0); MEAN CORPUSCULAR VOLUME 98 fL (80-96); MONOCYTES # (AUTO) 0.2 K/uL (0.1-1.30); MONOCYTES % (AUTO) 2.9 % (2.0-12.0); NEUTROPHILS # (AUTO) 8.1 K/uL (1.8-8.9); NEUTROPHILS % (AUTO) 95.3 % (43.0-81.0); RED BLOOD CELL COUNT(AUTO) 2.25 MIL/uL (4.5-6.0); RED CELL DISTRIBUTION WIDTH 17.5 % (11.5-15.0); WHITE BLOOD COUNT (AUTO) 8.4 K/uL (4.3-11.0)
[2024-09-28 08:38] LABS: PLATELET COUNT (AUTO) 38 K/uL (150-450)
[2024-09-28 09:14] LABS: CALCIUM, SERUM 7.7 mg/dL (8.5-10.1); CREATININE 2.7 mg/dL (0.6-1.3); POTASSIUM 3.4 mmol/L (3.5-5.1)
[2024-09-28 10:30] LABS: ABG BASE EXCESS 4.4 mmol/L (-2.0-3.0); ABG OXYGEN SATURATION 93.3 % (94.0-98.0); ABG PCO2 58.3 mmHg (35.0-48.0); ABG PH 7.341 (7.350-7.450); ABG PO2 67.5 mmHg (83.0-108.0); ABG TOTAL HEMOGLOBIN 7.9 G/dL (13.5-17.5); COHb 0.4 % (0.5-1.5); MetHb 0.3 % (0.0-1.5); O2Hb 92.6 % (94.0-97.0); SITE, ABG RIGHT RADIAL
[2024-09-28 12:00] VITALS: BP 122/43; TEMP 97.7; O2SAT 97
[2024-09-28 12:27] LABS: LYMPHOCYTES % (MANUAL) 1 % (16-48); MONOCYTES % (MANUAL) 2 % (0-11.0); NEUTROPHILS % (MANUAL) 97 (42-76)
[2024-09-28 12:29] LABS: ANISOCYTOSIS 1+; PLATELET ESTIMATE DECREASED; STOMATOCYTES 1+
[2024-09-28 16:00] VITALS: BP 102/45; TEMP 97.6; O2SAT 95
[2024-09-28] MEDS ORDERED: MEROPENEM 500 MG in IV NS 0.9% 50 ML IV SCH (16:00)
[2024-09-28] MEDS: VANCOMYCIN 1 GM in IV D5W 250 ML IV ONE (18:01)
[2024-09-28] MEDS: MEROPENEM 500 MG in IV NS 0.9% 50 ML IV SCH (19:16)
[2024-09-28 20:00] VITALS: BP 107/45; TEMP 97.5; O2SAT 95
[2024-09-28] MEDS: VALPROIC ACID 250 MG/5 ML UDC GT SCH (20:23)
[2024-09-28 22:37] LABS: ABG BASE EXCESS 0.9 mmol/L (-2.0-3.0); ABG OXYGEN SATURATION 99.2 % (94.0-98.0); ABG PCO2 69.3 mmHg (35.0-48.0); ABG PH 7.235 (7.350-7.450); ABG PO2 203.6 mmHg (83.0-108.0); COHb 0.3 % (0.5-1.5); MetHb 0.5 % (0.0-1.5); O2Hb 98.4 % (94.0-97.0); SITE, ABG RIGHT RADIAL
[2024-09-28] MEDS: MIDODRINE HCL (5MG) 5 MG TABLET PO SCH (23:23)
[2024-09-29] VITALS (40 sets, daily range): BP systolic 84–151; BP diastolic 33–51; TEMP 96.8–98.1; O2SAT 95–100
[2024-09-29 08:23] LABS: INR 1.22 (0.91-1.10); PARTIAL THROMBOPLASTIN TIME 37.3 SEC (24.3-34.3); PROTHROMBIN TIME 12.8 SECS (9.2-11.1)
[2024-09-29 08:24] LABS: D-DIMER 6.03 mg/L(FEU (0.17-0.50)
[2024-09-29 08:34] LABS: ABG BASE EXCESS 5.2 mmol/L (-2.0-3.0); ABG OXYGEN SATURATION 97.5 % (94.0-98.0); ABG PCO2 66.1 mmHg (35.0-48.0); ABG PH 7.305 (7.350-7.450); ABG PO2 99.6 mmHg (83.0-108.0); ABG TOTAL HEMOGLOBIN 6.4 G/dL (13.5-17.5); COHb 1.4 % (0.5-1.5); O2Hb 96.1 % (94.0-97.0); SITE, ABG RIGHT BRACHIAL
[2024-09-29 08:44] LABS: BASOPHILS % (AUTO) 0.1 % (0.0-2.0); EOSINOPHILS % (AUTO) 0.2 % (0.0-6.0); LYMPHOCYTES # (AUTO) 0.1 K/uL (0.8-4.8); LYMPHOCYTES % (AUTO) 1.6 % (20.0-44.0); MEAN CORPUSCULAR HEMOGLOBIN 34 PG (26.0-33.0); MEAN CORPUSCULAR HGB CONC 34 g/dl (31.0-36.0); MEAN CORPUSCULAR VOLUME 99 fL (80-96); MONOCYTES # (AUTO) 0.2 K/uL (0.1-1.30); MONOCYTES % (AUTO) 2.2 % (2.0-12.0); NEUTROPHILS # (AUTO) 7.5 K/uL (1.8-8.9); NEUTROPHILS % (AUTO) 95.9 % (43.0-81.0); RED CELL DISTRIBUTION WIDTH 19.3 % (11.5-15.0); WHITE BLOOD COUNT (AUTO) 7.8 K/uL (4.3-11.0)
[2024-09-29 09:39] LABS: CALCIUM, SERUM 7.8 mg/dL (8.5-10.1); POTASSIUM 3.3 mmol/L (3.5-5.1)
[2024-09-29 10:38] LABS: RED BLOOD CELL COUNT(AUTO) 1.92 MIL/uL (4.5-6.0)
[2024-09-29 10:41] LABS: HEMATOCRIT 19 % (39-51); HEMOGLOBIN 6.4 g/dL (13.5-17.5); PLATELET COUNT (AUTO) 26 K/uL (150-450)
[2024-09-29 11:29] LABS: ABG BASE EXCESS 2.5 mmol/L (-2.0-3.0); ABG OXYGEN SATURATION 97.3 % (94.0-98.0); ABG PCO2 55.7 mmHg (35.0-48.0); ABG PH 7.331 (7.350-7.450); ABG PO2 91.7 mmHg (83.0-108.0); ABG TOTAL HEMOGLOBIN 6.6 G/dL (13.5-17.5); COHb 1.6 % (0.5-1.5); MetHb 0.1 % (0.0-1.5); O2Hb 95.6 % (94.0-97.0); SITE, ABG RIGHT RADIAL
[2024-09-29 16:29] LABS: ANISOCYTOSIS 1+; BAND % (MANUAL) 5 % (0.0-5.0); EOSINOPHILS % (MANUAL) 3 % (0-4); LYMPHOCYTES % (MANUAL) 5 % (16-48); MONOCYTES % (MANUAL) 2 % (0-11.0); NEUTROPHILS % (MANUAL) 85 (42-76); PLATELET ESTIMATE DECREASED
[2024-09-29] MEDS: VANCOMYCIN POST DIALYSIS 500MG IV PRN (18:06)
[2024-09-29 19:41] LABS: BASOPHILS % (AUTO) 0.3 % (0.0-2.0); EOSINOPHILS % (AUTO) 0.2 % (0.0-6.0); HEMATOCRIT 25 % (39-51); HEMOGLOBIN 8.4 g/dL (13.5-17.5); LYMPHOCYTES # (AUTO) 0.2 K/uL (0.8-4.8); LYMPHOCYTES % (AUTO) 2.1 % (20.0-44.0); MEAN CORPUSCULAR HEMOGLOBIN 34 PG (26.0-33.0); MEAN CORPUSCULAR HGB CONC 34 g/dl (31.0-36.0); MEAN CORPUSCULAR VOLUME 99 fL (80-96); MONOCYTES # (AUTO) 0.2 K/uL (0.1-1.30); MONOCYTES % (AUTO) 2.2 % (2.0-12.0); NEUTROPHILS # (AUTO) 8.8 K/uL (1.8-8.9); NEUTROPHILS % (AUTO) 95.2 % (43.0-81.0); PLATELET COUNT (AUTO) 57 K/uL (150-450); RED BLOOD CELL COUNT(AUTO) 2.52 MIL/uL (4.5-6.0); RED CELL DISTRIBUTION WIDTH 17.5 % (11.5-15.0); WHITE BLOOD COUNT (AUTO) 9.3 K/uL (4.3-11.0)
[2024-09-30] VITALS (37 sets, daily range): BP systolic 98–157; BP diastolic 42–94; TEMP 97–97.8; O2SAT 92–100
[2024-09-30 05:14] LABS: BASOPHILS # (AUTO) 0.1 K/uL (0.0-0.2); BASOPHILS % (AUTO) 0.6 % (0.0-2.0); EOSINOPHILS % (AUTO) 0.1 % (0.0-6.0); HEMATOCRIT 25 % (39-51); HEMOGLOBIN 8.7 g/dL (13.5-17.5); LYMPHOCYTES # (AUTO) 0.1 K/uL (0.8-4.8); LYMPHOCYTES % (AUTO) 1.4 % (20.0-44.0); MEAN CORPUSCULAR HEMOGLOBIN 34 PG (26.0-33.0); MEAN CORPUSCULAR HGB CONC 34 g/dl (31.0-36.0); MEAN CORPUSCULAR VOLUME 98 fL (80-96); MONOCYTES # (AUTO) 0.2 K/uL (0.1-1.30); MONOCYTES % (AUTO) 2.2 % (2.0-12.0); NEUTROPHILS % (AUTO) 95.7 % (43.0-81.0); RED BLOOD CELL COUNT(AUTO) 2.57 MIL/uL (4.5-6.0); RED CELL DISTRIBUTION WIDTH 16.7 % (11.5-15.0); WHITE BLOOD COUNT (AUTO) 8.4 K/uL (4.3-11.0)
[2024-09-30 05:23] LABS: CREATININE 3.7 mg/dL (0.6-1.3); POTASSIUM 3.6 mmol/L (3.5-5.1)
[2024-09-30 05:31] LABS: INR 1.11 (0.91-1.10); PARTIAL THROMBOPLASTIN TIME 31.2 SEC (24.3-34.3); PROTHROMBIN TIME 11.7 SECS (9.2-11.1)
[2024-09-30 05:39] LABS: PLATELET COUNT (AUTO) 50 K/uL (150-450)
[2024-09-30 05:50] LABS: D-DIMER 8.07 mg/L(FEU (0.17-0.50)
[2024-09-30 06:23] LABS: NEUTROPHILS % (MANUAL) 93 (42-76)
[2024-09-30 06:24] LABS: BAND % (MANUAL) 3 % (0.0-5.0); LYMPHOCYTES % (MANUAL) 1 % (16-48); MONOCYTES % (MANUAL) 3 % (0-11.0)
[2024-09-30 06:25] LABS: ANISOCYTOSIS 1+; PLATELET ESTIMATE DECREASED
[2024-09-30 07:41] LABS: ABG BASE EXCESS -0.8 mmol/L (-2.0-3.0); ABG OXYGEN SATURATION 98.4 % (94.0-98.0); ABG PCO2 43.8 mmHg (35.0-48.0); ABG PH 7.366 (7.350-7.450); ABG TOTAL HEMOGLOBIN 8.6 G/dL (13.5-17.5); MetHb 0.3 % (0.0-1.5); O2Hb 98.1 % (94.0-97.0); SITE, ABG RIGHT BRACHIAL
[2024-10-01] VITALS (40 sets, daily range): BP systolic 75–148; BP diastolic 42–86; TEMP 97.3–98.4; O2SAT 80–99
[2024-10-01 05:52] LABS: BASOPHILS % (AUTO) 0.3 % (0.0-2.0); HEMATOCRIT 25 % (39-51); HEMOGLOBIN 8.4 g/dL (13.5-17.5); LYMPHOCYTES # (AUTO) 0.1 K/uL (0.8-4.8); LYMPHOCYTES % (AUTO) 1.1 % (20.0-44.0); MEAN CORPUSCULAR HEMOGLOBIN 33 PG (26.0-33.0); MEAN CORPUSCULAR HGB CONC 34 g/dl (31.0-36.0); MEAN CORPUSCULAR VOLUME 98 fL (80-96); MONOCYTES # (AUTO) 0.2 K/uL (0.1-1.30); MONOCYTES % (AUTO) 1.9 % (2.0-12.0); NEUTROPHILS # (AUTO) 7.9 K/uL (1.8-8.9); NEUTROPHILS % (AUTO) 96.7 % (43.0-81.0); PLATELET COUNT (AUTO) 53 K/uL (150-450); RED BLOOD CELL COUNT(AUTO) 2.53 MIL/uL (4.5-6.0); RED CELL DISTRIBUTION WIDTH 18.5 % (11.5-15.0); WHITE BLOOD COUNT (AUTO) 8.2 K/uL (4.3-11.0)
[2024-10-01 06:03] LABS: ALANINE AMINOTRANSFERASE 30 U/L (12-78); ALBUMIN 2.5 g/dL (3.4-5.0); ALKALINE PHOSPHATASE 364 U/L (46-116); ASPARTATE AMINOTRANSFERASE 27 U/L (15-37); CALCIUM, SERUM 7.5 mg/dL (8.5-10.1); CARBON DIOXIDE 29 mmol/L (21-32); CHLORIDE 97 mmol/L (98-107); CREATININE 2.7 mg/dL (0.6-1.3); GLUCOSE 108 mg/dL (74-106); MAGNESIUM 2.2 mg/dL (1.8-2.4); PHOSPHORUS 3.5 mg/dL (2.5-4.9); POTASSIUM 3.4 mmol/L (3.5-5.1); SODIUM SERUM 138 mmol/L (136-145); TOTAL PROTEIN, SERUM 5.1 g/dL (6.4-8.2); UREA NITROGEN, BLOOD 44 mg/dL (7-18)
[2024-10-01] MEDS: diphenhydrAMINE HCL 50 MG/ML VIAL IV ONE (08:36)
[2024-10-01 08:46] LABS: ABG BASE EXCESS -0.7 mmol/L (-2.0-3.0); ABG OXYGEN SATURATION 95.2 % (94.0-98.0); ABG PCO2 43.9 mmHg (35.0-48.0); ABG PH 7.367 (7.350-7.450); ABG PO2 79.6 mmHg (83.0-108.0); ABG TOTAL HEMOGLOBIN 9.3 G/dL (13.5-17.5); COHb 0.6 % (0.5-1.5); MetHb 0.2 % (0.0-1.5); O2Hb 94.4 % (94.0-97.0); SITE, ABG RIGHT RADIAL
[2024-10-01 08:58] LABS: ANISOCYTOSIS 1+; BAND % (MANUAL) 1 % (0.0-5.0); LYMPHOCYTES % (MANUAL) 1 % (16-48); MONOCYTES % (MANUAL) 2 % (0-11.0); NEUTROPHILS % (MANUAL) 96 (42-76); PLATELET ESTIMATE DECREASED; STOMATOCYTES 1+
[2024-10-02] VITALS (55 sets, daily range): BP systolic 63–176; BP diastolic 20–70; TEMP 97.6–98.9; O2SAT 88–100
[2024-10-02 05:01] LABS: BASOPHILS % (AUTO) 0.2 % (0.0-2.0); HEMATOCRIT 25 % (39-51); HEMOGLOBIN 8.6 g/dL (13.5-17.5); LYMPHOCYTES # (AUTO) 0.1 K/uL (0.8-4.8); LYMPHOCYTES % (AUTO) 0.7 % (20.0-44.0); MEAN CORPUSCULAR HEMOGLOBIN 34 PG (26.0-33.0); MEAN CORPUSCULAR HGB CONC 34 g/dl (31.0-36.0); MEAN CORPUSCULAR VOLUME 99 fL (80-96); MONOCYTES # (AUTO) 0.1 K/uL (0.1-1.30); MONOCYTES % (AUTO) 1.4 % (2.0-12.0); NEUTROPHILS # (AUTO) 8.8 K/uL (1.8-8.9); NEUTROPHILS % (AUTO) 97.7 % (43.0-81.0); RED BLOOD CELL COUNT(AUTO) 2.56 MIL/uL (4.5-6.0); RED CELL DISTRIBUTION WIDTH 17.8 % (11.5-15.0)
[2024-10-02 05:28] LABS: PLATELET COUNT (AUTO) 50 K/uL (150-450)
[2024-10-02 05:49] LABS: ALBUMIN 2.1 g/dL (3.4-5.0); BILIRUBIN,TOTAL 0.8 mg/dL (0.2-1.0); CALCIUM, SERUM 8.4 mg/dL (8.5-10.1); CREATININE 2.6 mg/dL (0.6-1.3); MAGNESIUM 2.2 mg/dL (1.8-2.4); PHOSPHORUS 5.3 mg/dL (2.5-4.9); POTASSIUM 3.7 mmol/L (3.5-5.1); TOTAL PROTEIN, SERUM 4.9 g/dL (6.4-8.2)
[2024-10-02 06:32] LABS: INR 1.13 (0.91-1.10); PARTIAL THROMBOPLASTIN TIME 33.9 SEC (24.3-34.3); PROTHROMBIN TIME 11.9 SECS (9.2-11.1)
[2024-10-02 06:37] LABS: D-DIMER 7.33 mg/L(FEU (0.17-0.50)
[2024-10-02 07:37] LABS: BAND % (MANUAL) 3 % (0.0-5.0); LYMPHOCYTES % (MANUAL) 1 % (16-48); MONOCYTES % (MANUAL) 1 % (0-11.0); MYELOCYTES % 1 % (0-0); PLATELET ESTIMATE DECREASED
[2024-10-02 07:38] LABS: NEUTROPHILS % (MANUAL) 94 (42-76)
[2024-10-02 07:39] LABS: ANISOCYTOSIS 1+; STOMATOCYTES 1+
[2024-10-02 12:15] LABS: ABG BASE EXCESS -0.1 mmol/L (-2.0-3.0); ABG OXYGEN SATURATION 96.7 % (94.0-98.0); ABG PCO2 67.6 mmHg (35.0-48.0); ABG PH 7.236 (7.350-7.450); ABG PO2 97.8 mmHg (83.0-108.0); ABG TOTAL HEMOGLOBIN 8.8 G/dL (13.5-17.5); COHb 0.7 % (0.5-1.5); MetHb 0.1 % (0.0-1.5); O2Hb 95.9 % (94.0-97.0); SITE, ABG RIGHT BRACHIAL
[2024-10-02 14:08] LABS: ABG BASE EXCESS 4.3 mmol/L (-2.0-3.0); ABG OXYGEN SATURATION 91.1 % (94.0-98.0); ABG PCO2 128.4 mmHg (35.0-48.0); ABG PH 7.072 (7.350-7.450); ABG PO2 75.6 mmHg (83.0-108.0); ABG TOTAL HEMOGLOBIN 9.2 G/dL (13.5-17.5); COHb 0.3 % (0.5-1.5); MetHb 0.7 % (0.0-1.5); O2Hb 90.2 % (94.0-97.0); SITE, ABG RIGHT BRACHIAL
[2024-10-02] MEDS: NOREPINEPHRINE 8 MG in IV D5W 242 ML IV PRN (14:40)
[2024-10-02 16:08] LABS: ABG BASE EXCESS 5.7 mmol/L (-2.0-3.0); ABG OXYGEN SATURATION 96.2 % (94.0-98.0); ABG PCO2 65.9 mmHg (35.0-48.0); ABG PH 7.319 (7.350-7.450); ABG PO2 82.1 mmHg (83.0-108.0); ABG TOTAL HEMOGLOBIN 9.6 G/dL (13.5-17.5); COHb 0.4 % (0.5-1.5); MetHb 0.4 % (0.0-1.5); O2Hb 95.4 % (94.0-97.0); PEEP,BG 5 cm H2O; SITE, ABG RIGHT BRACHIAL; VT, ABG 500 mL
[2024-10-02] MEDS: PROPOFOL 100 ML IV PRN (19:28)
[2024-10-03] VITALS (83 sets, daily range): BP systolic 82–162; BP diastolic 30–60; TEMP 97.6–101.5; O2SAT 94–100
[2024-10-03 04:19] LABS: BASOPHILS % (AUTO) 0.5 % (0.0-2.0); HEMATOCRIT 24 % (39-51); LYMPHOCYTES # (AUTO) 0.1 K/uL (0.8-4.8); LYMPHOCYTES % (AUTO) 1.7 % (20.0-44.0); MEAN CORPUSCULAR HEMOGLOBIN 33 PG (26.0-33.0); MEAN CORPUSCULAR HGB CONC 33 g/dl (31.0-36.0); MEAN CORPUSCULAR VOLUME 100 fL (80-96); MONOCYTES # (AUTO) 0.1 K/uL (0.1-1.30); NEUTROPHILS # (AUTO) 5.8 K/uL (1.8-8.9); NEUTROPHILS % (AUTO) 96.8 % (43.0-81.0); RED BLOOD CELL COUNT(AUTO) 2.42 MIL/uL (4.5-6.0)
[2024-10-03 04:47] LABS: INR 1.13 (0.91-1.10); PARTIAL THROMBOPLASTIN TIME 38.2 SEC (24.3-34.3); PROTHROMBIN TIME 11.9 SECS (9.2-11.1)
[2024-10-03 04:48] LABS: D-DIMER 7.35 mg/L(FEU (0.17-0.50)
[2024-10-03 04:58] LABS: PLATELET COUNT (AUTO) 29 K/uL (150-450)
[2024-10-03 04:59] LABS: ALBUMIN 2.3 g/dL (3.4-5.0); BILIRUBIN,TOTAL 0.7 mg/dL (0.2-1.0); CREATININE 2.5 mg/dL (0.6-1.3); MAGNESIUM 2.2 mg/dL (1.8-2.4); PHOSPHORUS 4.4 mg/dL (2.5-4.9); POTASSIUM 3.7 mmol/L (3.5-5.1)
[2024-10-03 05:32] LABS: ANISOCYTOSIS 1+; BAND % (MANUAL) 5 % (0.0-5.0); BASOPHILS % (MANUAL) 0 % (0.0-2.0); EOSINOPHILS % (MANUAL) 0 % (0-4); LYMPHOCYTES % (MANUAL) 2 % (16-48); MONOCYTES % (MANUAL) 2 % (0-11.0); NEUTROPHILS % (MANUAL) 91 (42-76); PLATELET ESTIMATE DECREASED; STOMATOCYTES 1+
[2024-10-03 06:22] LABS: ABG BASE EXCESS 2.1 mmol/L (-2.0-3.0); ABG OXYGEN SATURATION 92.1 % (94.0-98.0); ABG PCO2 81.7 mmHg (35.0-48.0); ABG PH 7.201 (7.350-7.450); ABG PO2 66.6 mmHg (83.0-108.0); COHb 0.8 % (0.5-1.5); MetHb 0.3 % (0.0-1.5); O2Hb 91.1 % (94.0-97.0); PEEP,BG 5 cm H2O; SITE, ABG RIGHT BRACHIAL; VT, ABG 450 mL
[2024-10-03] MEDS: HYDROCORTISONE SOD SUCCINATE 100 MG/2 ML VIAL IV SCH (13:27)
[2024-10-04] VITALS (102 sets, daily range): BP systolic 69–170; BP diastolic 35–56; TEMP 97.8–99.2; O2SAT 90–100
[2024-10-04 04:56] LABS: INR 1.11 (0.91-1.10); PARTIAL THROMBOPLASTIN TIME 39.1 SEC (24.3-34.3); PROTHROMBIN TIME 11.7 SECS (9.2-11.1)
[2024-10-04 05:08] LABS: D-DIMER 9.88 mg/L(FEU (0.17-0.50)
[2024-10-04 05:17] LABS: CALCIUM, SERUM 8.2 mg/dL (8.5-10.1); CREATININE 3.7 mg/dL (0.6-1.3); POTASSIUM 4.5 mmol/L (3.5-5.1)
[2024-10-04 12:44] LABS: BASOPHILS # (AUTO) 0.1 K/uL (0.0-0.2); BASOPHILS % (AUTO) 1.2 % (0.0-2.0); HEMATOCRIT 26 % (39-51); HEMOGLOBIN 8.3 g/dL (13.5-17.5); LYMPHOCYTES # (AUTO) 0.1 K/uL (0.8-4.8); LYMPHOCYTES % (AUTO) 1.4 % (20.0-44.0); MEAN CORPUSCULAR HEMOGLOBIN 33 PG (26.0-33.0); MEAN CORPUSCULAR HGB CONC 32 g/dl (31.0-36.0); MEAN CORPUSCULAR VOLUME 102 fL (80-96); MONOCYTES # (AUTO) 0.1 K/uL (0.1-1.30); MONOCYTES % (AUTO) 0.8 % (2.0-12.0); NEUTROPHILS # (AUTO) 8.4 K/uL (1.8-8.9); NEUTROPHILS % (AUTO) 96.6 % (43.0-81.0); RED BLOOD CELL COUNT(AUTO) 2.51 MIL/uL (4.5-6.0); RED CELL DISTRIBUTION WIDTH 17.4 % (11.5-15.0); WHITE BLOOD COUNT (AUTO) 8.7 K/uL (4.3-11.0)
[2024-10-04 12:50] LABS: PLATELET COUNT (AUTO) 19 K/uL (150-450)
[2024-10-04 13:31] LABS: PLATELET ESTIMATE DECREASED
[2024-10-04 13:34] LABS: ANISOCYTOSIS 1+; BAND % (MANUAL) 2 % (0.0-5.0); LYMPHOCYTES % (MANUAL) 1 % (16-48); MONOCYTES % (MANUAL) 1 % (0-11.0); NEUTROPHILS % (MANUAL) 96 (42-76)
[2024-10-05] VITALS (62 sets, daily range): BP systolic 84–146; BP diastolic 37–75; TEMP 97.6–98.6; O2SAT 93–99
[2024-10-05 05:38] LABS: BASOPHILS % (AUTO) 0.2 % (0.0-2.0); HEMATOCRIT 23 % (39-51); HEMOGLOBIN 7.7 g/dL (13.5-17.5); LYMPHOCYTES # (AUTO) 0.1 K/uL (0.8-4.8); LYMPHOCYTES % (AUTO) 0.9 % (20.0-44.0); MEAN CORPUSCULAR HEMOGLOBIN 33 PG (26.0-33.0); MEAN CORPUSCULAR HGB CONC 34 g/dl (31.0-36.0); MEAN CORPUSCULAR VOLUME 98 fL (80-96); MONOCYTES # (AUTO) 0.1 K/uL (0.1-1.30); MONOCYTES % (AUTO) 0.6 % (2.0-12.0); NEUTROPHILS # (AUTO) 9.8 K/uL (1.8-8.9); NEUTROPHILS % (AUTO) 98.3 % (43.0-81.0); RED CELL DISTRIBUTION WIDTH 16.6 % (11.5-15.0); WHITE BLOOD COUNT (AUTO) 9.9 K/uL (4.3-11.0)
[2024-10-05 05:41] LABS: INR 1.03 (0.91-1.10); PARTIAL THROMBOPLASTIN TIME 35.8 SEC (24.3-34.3); PROTHROMBIN TIME 10.9 SECS (9.2-11.1)
[2024-10-05 05:44] LABS: D-DIMER 9.77 mg/L(FEU (0.17-0.50)
[2024-10-05 05:49] LABS: CALCIUM, SERUM 7.5 mg/dL (8.5-10.1); CREATININE 2.7 mg/dL (0.6-1.3); POTASSIUM 4.4 mmol/L (3.5-5.1)
[2024-10-05 05:50] LABS: PLATELET COUNT (AUTO) 29 K/uL (150-450)
[2024-10-05 05:54] LABS: BAND % (MANUAL) 3 % (0.0-5.0); BASOPHILS % (MANUAL) 0 % (0.0-2.0); EOSINOPHILS % (MANUAL) 0 % (0-4); LYMPHOCYTES % (MANUAL) 2 % (16-48); MONOCYTES % (MANUAL) 1 % (0-11.0); NEUTROPHILS % (MANUAL) 94 (42-76)
[2024-10-05 05:56] LABS: ANISOCYTOSIS 1+; HYPOCHROMASIA FEW; PLATELET ESTIMATE DECREASED
[2024-10-05 08:37] LABS: ABG BASE EXCESS -2.5 mmol/L (-2.0-3.0); ABG OXYGEN SATURATION 91.6 % (94.0-98.0); ABG PCO2 52.2 mmHg (35.0-48.0); ABG PH 7.286 (7.350-7.450); ABG PO2 63.5 mmHg (83.0-108.0); ABG TOTAL HEMOGLOBIN 8.9 G/dL (13.5-17.5); COHb 0.2 % (0.5-1.5); MetHb 0.2 % (0.0-1.5); O2Hb 91.2 % (94.0-97.0); PEEP,BG 8 cm H2O; SITE, ABG RIGHT RADIAL; VT, ABG 500 mL
[2024-10-06] VITALS (64 sets, daily range): BP systolic 89–153; BP diastolic 38–56; TEMP 97.5–98; O2SAT 92–98
[2024-10-06 05:46] LABS: BASOPHILS % (AUTO) 0.2 % (0.0-2.0); CALCIUM, SERUM 8.2 mg/dL (8.5-10.1); CREATININE 3.6 mg/dL (0.6-1.3); HEMATOCRIT 24 % (39-51); LYMPHOCYTES # (AUTO) 0.1 K/uL (0.8-4.8); LYMPHOCYTES % (AUTO) 1.3 % (20.0-44.0); MEAN CORPUSCULAR HEMOGLOBIN 33 PG (26.0-33.0); MEAN CORPUSCULAR HGB CONC 33 g/dl (31.0-36.0); MEAN CORPUSCULAR VOLUME 100 fL (80-96); MONOCYTES # (AUTO) 0.1 K/uL (0.1-1.30); NEUTROPHILS # (AUTO) 5.8 K/uL (1.8-8.9); NEUTROPHILS % (AUTO) 97.5 % (43.0-81.0); POTASSIUM 5.1 mmol/L (3.5-5.1); RED BLOOD CELL COUNT(AUTO) 2.45 MIL/uL (4.5-6.0); RED CELL DISTRIBUTION WIDTH 17.3 % (11.5-15.0); WHITE BLOOD COUNT (AUTO) 5.9 K/uL (4.3-11.0)
[2024-10-06 05:50] LABS: INR 1.02 (0.91-1.10); PARTIAL THROMBOPLASTIN TIME 32.4 SEC (24.3-34.3); PROTHROMBIN TIME 10.8 SECS (9.2-11.1)
[2024-10-06 05:55] LABS: D-DIMER 11.6 mg/L(FEU (0.17-0.50)
[2024-10-06 06:00] LABS: PLATELET COUNT (AUTO) 12 K/uL (150-450)
[2024-10-06 06:40] LABS: ANISOCYTOSIS 1+; BASOPHILS % (MANUAL) 0 % (0.0-2.0); EOSINOPHILS % (MANUAL) 0 % (0-4); LYMPHOCYTES % (MANUAL) 4 % (16-48); MONOCYTES % (MANUAL) 1 % (0-11.0); NEUTROPHILS % (MANUAL) 95 (42-76); PLATELET ESTIMATE DECREASED
[2024-10-06 08:49] LABS: ABG BASE EXCESS -5.4 mmol/L (-2.0-3.0); ABG OXYGEN SATURATION 86.5 % (94.0-98.0); ABG PCO2 53.4 mmHg (35.0-48.0); ABG PH 7.233 (7.350-7.450); ABG PO2 57.9 mmHg (83.0-108.0); ABG TOTAL HEMOGLOBIN 8.8 G/dL (13.5-17.5); COHb 0.5 % (0.5-1.5); MetHb 0.3 % (0.0-1.5); O2Hb 85.8 % (94.0-97.0); PEEP,BG 8 cm H2O; SITE, ABG RIGHT BRACHIAL; VT, ABG 525 mL
[2024-10-06] MEDS: ACETAMINOPHEN 650 MG/20.3 ML UDC NG STA (10:39)
[2024-10-06] MEDS: diphenhydrAMINE HCL 50 MG/ML VIAL IV STA (10:39)
[2024-10-06 16:26] LABS: BASOPHILS % (AUTO) 0.7 % (0.0-2.0); EOSINOPHILS % (AUTO) 0.2 % (0.0-6.0); HEMATOCRIT 24 % (39-51); LYMPHOCYTES # (AUTO) 0.1 K/uL (0.8-4.8); LYMPHOCYTES % (AUTO) 3.5 % (20.0-44.0); MEAN CORPUSCULAR HEMOGLOBIN 33 PG (26.0-33.0); MEAN CORPUSCULAR HGB CONC 33 g/dl (31.0-36.0); MEAN CORPUSCULAR VOLUME 99 fL (80-96); MONOCYTES % (AUTO) 1.4 % (2.0-12.0); NEUTROPHILS # (AUTO) 3.2 K/uL (1.8-8.9); NEUTROPHILS % (AUTO) 94.2 % (43.0-81.0); RED BLOOD CELL COUNT(AUTO) 2.47 MIL/uL (4.5-6.0); RED CELL DISTRIBUTION WIDTH 17.2 % (11.5-15.0); WHITE BLOOD COUNT (AUTO) 3.4 K/uL (4.3-11.0)
[2024-10-06 16:28] LABS: PLATELET COUNT (AUTO) 14 K/uL (150-450)
[2024-10-06 17:19] LABS: LYMPHOCYTES % (MANUAL) 8 % (16-48); MONOCYTES % (MANUAL) 1 % (0-11.0); NEUTROPHILS % (MANUAL) 91 (42-76); PLATELET ESTIMATE DECREASED
[2024-10-06 17:20] LABS: ANISOCYTOSIS 1+
[2024-10-06] MEDS: FAMOTIDINE/PF INJ 20 MG/2 ML VIAL IV SCH (21:13)
[2024-10-07] VITALS (100 sets, daily range): BP systolic 71–167; BP diastolic 40–87; TEMP 97–98.7; O2SAT 94–98
[2024-10-07 05:49] LABS: BASOPHILS % (AUTO) 0.4 % (0.0-2.0); EOSINOPHILS % (AUTO) 0.4 % (0.0-6.0); HEMATOCRIT 24 % (39-51); HEMOGLOBIN 7.7 g/dL (13.5-17.5); LYMPHOCYTES # (AUTO) 0.1 K/uL (0.8-4.8); LYMPHOCYTES % (AUTO) 2.9 % (20.0-44.0); MEAN CORPUSCULAR HEMOGLOBIN 33 PG (26.0-33.0); MEAN CORPUSCULAR HGB CONC 33 g/dl (31.0-36.0); MEAN CORPUSCULAR VOLUME 99 fL (80-96); MONOCYTES # (AUTO) 0.1 K/uL (0.1-1.30); MONOCYTES % (AUTO) 1.8 % (2.0-12.0); NEUTROPHILS # (AUTO) 4.2 K/uL (1.8-8.9); NEUTROPHILS % (AUTO) 94.5 % (43.0-81.0); RED BLOOD CELL COUNT(AUTO) 2.36 MIL/uL (4.5-6.0); RED CELL DISTRIBUTION WIDTH 17.2 % (11.5-15.0); WHITE BLOOD COUNT (AUTO) 4.4 K/uL (4.3-11.0)
[2024-10-07 05:55] LABS: CALCIUM, SERUM 8.1 mg/dL (8.5-10.1); CREATININE 2.8 mg/dL (0.6-1.3); POTASSIUM 4.3 mmol/L (3.5-5.1)
[2024-10-07 06:03] LABS: PLATELET COUNT (AUTO) 11 K/uL (150-450)
[2024-10-07 07:33] LABS: BAND % (MANUAL) 1 % (0.0-5.0); LYMPHOCYTES % (MANUAL) 5 % (16-48); NEUTROPHILS % (MANUAL) 94 (42-76); PLATELET ESTIMATE DECREASED
[2024-10-07 07:35] LABS: ANISOCYTOSIS 1+
[2024-10-07 12:00] LABS: ALBUMIN 1.5 g/dL (3.4-5.0); BILIRUBIN,DIRECT 0.2 mg/dL (0.0-0.2); BILIRUBIN,TOTAL 0.4 mg/dL (0.2-1.0); TOTAL PROTEIN, SERUM 4.4 g/dL (6.4-8.2)
[2024-10-07 12:38] LABS: BASOPHILS % (AUTO) 0.1 % (0.0-2.0); HEMATOCRIT 21 % (39-51); LYMPHOCYTES # (AUTO) 0.1 K/uL (0.8-4.8); LYMPHOCYTES % (AUTO) 2.9 % (20.0-44.0); MEAN CORPUSCULAR HEMOGLOBIN 33 PG (26.0-33.0); MEAN CORPUSCULAR HGB CONC 33 g/dl (31.0-36.0); MEAN CORPUSCULAR VOLUME 99 fL (80-96); MONOCYTES # (AUTO) 0.1 K/uL (0.1-1.30); MONOCYTES % (AUTO) 1.8 % (2.0-12.0); NEUTROPHILS # (AUTO) 3.6 K/uL (1.8-8.9); NEUTROPHILS % (AUTO) 95.2 % (43.0-81.0); RED BLOOD CELL COUNT(AUTO) 2.13 MIL/uL (4.5-6.0); RED CELL DISTRIBUTION WIDTH 17.2 % (11.5-15.0); WHITE BLOOD COUNT (AUTO) 3.7 K/uL (4.3-11.0)
[2024-10-07 12:41] LABS: HEMOGLOBIN 6.9 g/dL (13.5-17.5); PLATELET COUNT (AUTO) 34 K/uL (150-450)
[2024-10-07 14:54] LABS: ANISOCYTOSIS 2+; BAND % (MANUAL) 2 % (0.0-5.0); BASOPHILS % (MANUAL) 0 % (0.0-2.0); EOSINOPHILS % (MANUAL) 0 % (0-4); LYMPHOCYTES % (MANUAL) 14 % (16-48); MONOCYTES % (MANUAL) 1 % (0-11.0); NEUTROPHILS % (MANUAL) 93 (42-76); PLATELET ESTIMATE DECREASED
[2024-10-07] MEDS: PANTOPRAZOLE 40 MG VIAL IV SCH (20:43)
[2024-10-07 22:18] LABS: HEMATOCRIT 26 % (39-51); HEMOGLOBIN 8.8 g/dL (13.5-17.5); LYMPHOCYTES # (AUTO) 0.2 K/uL (0.8-4.8); LYMPHOCYTES % (AUTO) 3.7 % (20.0-44.0); MEAN CORPUSCULAR HEMOGLOBIN 32 PG (26.0-33.0); MEAN CORPUSCULAR HGB CONC 34 g/dl (31.0-36.0); MEAN CORPUSCULAR VOLUME 95 fL (80-96); MONOCYTES # (AUTO) 0.1 K/uL (0.1-1.30); MONOCYTES % (AUTO) 1.8 % (2.0-12.0); NEUTROPHILS # (AUTO) 4.2 K/uL (1.8-8.9); NEUTROPHILS % (AUTO) 93.5 % (43.0-81.0); RED BLOOD CELL COUNT(AUTO) 2.73 MIL/uL (4.5-6.0); RED CELL DISTRIBUTION WIDTH 18.7 % (11.5-15.0); WHITE BLOOD COUNT (AUTO) 4.5 K/uL (4.3-11.0)
[2024-10-07 22:30] LABS: PLATELET COUNT (AUTO) 19 K/uL (150-450)
[2024-10-08] VITALS (96 sets, daily range): BP systolic 82–141; BP diastolic 40–76; TEMP 97–97.9; O2SAT 92–98
[2024-10-08 02:12] LABS: ANISOCYTOSIS 1+; HYPOCHROMASIA 1+; LYMPHOCYTES % (MANUAL) 3 % (16-48); MONOCYTES % (MANUAL) 1 % (0-11.0); NEUTROPHILS % (MANUAL) 96 (42-76); PLATELET ESTIMATE DECREASED
[2024-10-08 05:35] LABS: BASOPHILS % (AUTO) 0.4 % (0.0-2.0); HEMATOCRIT 25 % (39-51); HEMOGLOBIN 8.4 g/dL (13.5-17.5); LYMPHOCYTES # (AUTO) 0.1 K/uL (0.8-4.8); LYMPHOCYTES % (AUTO) 4.1 % (20.0-44.0); MEAN CORPUSCULAR HEMOGLOBIN 32 PG (26.0-33.0); MEAN CORPUSCULAR HGB CONC 34 g/dl (31.0-36.0); MEAN CORPUSCULAR VOLUME 93 fL (80-96); MONOCYTES # (AUTO) 0.1 K/uL (0.1-1.30); MONOCYTES % (AUTO) 1.8 % (2.0-12.0); NEUTROPHILS # (AUTO) 3.1 K/uL (1.8-8.9); NEUTROPHILS % (AUTO) 93.7 % (43.0-81.0); RED BLOOD CELL COUNT(AUTO) 2.63 MIL/uL (4.5-6.0); RED CELL DISTRIBUTION WIDTH 17.9 % (11.5-15.0); WHITE BLOOD COUNT (AUTO) 3.3 K/uL (4.3-11.0)
[2024-10-08 06:50] LABS: CALCIUM, SERUM 7.9 mg/dL (8.5-10.1); CHLORIDE 103 mmol/L (98-107); CREATININE 2.4 mg/dL (0.6-1.3); GLUCOSE 117 mg/dL (74-106); POTASSIUM 4.3 mmol/L (3.5-5.1); SODIUM SERUM 136 mmol/L (136-145); UREA NITROGEN, BLOOD 56 mg/dL (7-18)
[2024-10-08 07:03] LABS: PLATELET COUNT (AUTO) 14 K/uL (150-450)
[2024-10-08 07:06] LABS: CARBON DIOXIDE 24 mmol/L (21-32)
[2024-10-08] MEDS: ACETAMINOPHEN 650 MG/20.3 ML UDC NG PRN (11:28)
[2024-10-08] MEDS: diphenhydrAMINE HCL 50 MG/ML VIAL IV PRN (11:29)
[2024-10-08 11:34] LABS: ANISOCYTOSIS 1+; LYMPHOCYTES % (MANUAL) 2 % (16-48); NEUTROPHILS % (MANUAL) 98 (42-76); PLATELET ESTIMATE DECREASED
[2024-10-08 13:18] LABS: ABG BASE EXCESS -4.7 mmol/L (-2.0-3.0); ABG OXYGEN SATURATION 83.9 % (94.0-98.0); ABG PH 7.304 (7.350-7.450); ABG PO2 52.8 mmHg (83.0-108.0); ABG TOTAL HEMOGLOBIN 9.3 G/dL (13.5-17.5); COHb 0.8 % (0.5-1.5); MetHb 0.3 % (0.0-1.5); PEEP,BG 8 cm H2O; SITE, ABG LEFT BRACHIAL; VT, ABG 550 mL
[2024-10-08 15:58] LABS: OCCULT BLOOD STOOL POSITIVE (NEGATIVE)
[2024-10-08 20:06] LABS: BASOPHILS % (AUTO) 1.3 % (0.0-2.0); EOSINOPHILS % (AUTO) 0.1 % (0.0-6.0); HEMATOCRIT 29 % (39-51); HEMOGLOBIN 9.5 g/dL (13.5-17.5); LYMPHOCYTES # (AUTO) 0.1 K/uL (0.8-4.8); LYMPHOCYTES % (AUTO) 4.8 % (20.0-44.0); MEAN CORPUSCULAR HEMOGLOBIN 32 PG (26.0-33.0); MEAN CORPUSCULAR HGB CONC 33 g/dl (31.0-36.0); MEAN CORPUSCULAR VOLUME 96 fL (80-96); MONOCYTES % (AUTO) 0.5 % (2.0-12.0); NEUTROPHILS # (AUTO) 2.3 K/uL (1.8-8.9); NEUTROPHILS % (AUTO) 93.3 % (43.0-81.0); RED BLOOD CELL COUNT(AUTO) 3.01 MIL/uL (4.5-6.0); RED CELL DISTRIBUTION WIDTH 18.7 % (11.5-15.0); WHITE BLOOD COUNT (AUTO) 2.5 K/uL (4.3-11.0)
[2024-10-08 20:11] LABS: PLATELET COUNT (AUTO) 33 K/uL (150-450)
[2024-10-09] VITALS (97 sets, daily range): BP systolic 60–145; BP diastolic 35–66; TEMP 97.2–97.9; O2SAT 94–97
[2024-10-09 01:04] LABS: ANISOCYTOSIS 1+; HYPOCHROMASIA 1+; MONOCYTES % (MANUAL) 1 % (0-11.0); PLATELET ESTIMATE DECREASED
[2024-10-09 05:18] LABS: BASOPHILS % (AUTO) 0.7 % (0.0-2.0); EOSINOPHILS % (AUTO) 0.1 % (0.0-6.0); HEMATOCRIT 25 % (39-51); HEMOGLOBIN 8.3 g/dL (13.5-17.5); LYMPHOCYTES # (AUTO) 0.1 K/uL (0.8-4.8); LYMPHOCYTES % (AUTO) 3.8 % (20.0-44.0); MEAN CORPUSCULAR HEMOGLOBIN 32 PG (26.0-33.0); MEAN CORPUSCULAR HGB CONC 33 g/dl (31.0-36.0); MEAN CORPUSCULAR VOLUME 97 fL (80-96); MONOCYTES # (AUTO) 0.1 K/uL (0.1-1.30); MONOCYTES % (AUTO) 2.4 % (2.0-12.0); NEUTROPHILS # (AUTO) 2.1 K/uL (1.8-8.9); RED BLOOD CELL COUNT(AUTO) 2.58 MIL/uL (4.5-6.0); RED CELL DISTRIBUTION WIDTH 19.1 % (11.5-15.0); WHITE BLOOD COUNT (AUTO) 2.3 K/uL (4.3-11.0)
[2024-10-09 05:23] LABS: PLATELET COUNT (AUTO) 26 K/uL (150-450)
[2024-10-09 05:52] LABS: LYMPHOCYTES % (MANUAL) 5 % (16-48); NEUTROPHILS % (MANUAL) 94 (42-76)
[2024-10-09 05:56] LABS: BAND % (MANUAL) 1 % (0.0-5.0); LYMPHOCYTES % (MANUAL) 4 % (16-48); MONOCYTES % (MANUAL) 4 % (0-11.0); NEUTROPHILS % (MANUAL) 91 (42-76); PLATELET ESTIMATE DECREASED
[2024-10-09 05:57] LABS: ANISOCYTOSIS 1+
[2024-10-09] MEDS: PROPOFOL 100 ML IV PRN (08:18)
[2024-10-09] MEDS: PANTOPRAZOLE 40 MG/PACK PACK NG SCH (08:35)
[2024-10-09 10:23] LABS: ABG BASE EXCESS -3.9 mmol/L (-2.0-3.0); ABG OXYGEN SATURATION 87.5 % (94.0-98.0); ABG PCO2 46.3 mmHg (35.0-48.0); ABG PH 7.302 (7.350-7.450); ABG PO2 61.8 mmHg (83.0-108.0); ABG TOTAL HEMOGLOBIN 8.6 G/dL (13.5-17.5); COHb 0.4 % (0.5-1.5); MetHb 0.4 % (0.0-1.5); O2Hb 86.8 % (94.0-97.0); PEEP,BG 8 cm H2O; SITE, ABG RIGHT RADIAL; VT, ABG 550 mL
[2024-10-10] VITALS (96 sets, daily range): BP systolic 79–189; BP diastolic 39–64; TEMP 97.2–98; O2SAT 95–98
[2024-10-10 05:00] LABS: BASOPHILS % (AUTO) 0.5 % (0.0-2.0); EOSINOPHILS % (AUTO) 0.1 % (0.0-6.0); HEMATOCRIT 27 % (39-51); HEMOGLOBIN 8.9 g/dL (13.5-17.5); LYMPHOCYTES # (AUTO) 0.1 K/uL (0.8-4.8); LYMPHOCYTES % (AUTO) 2.9 % (20.0-44.0); MEAN CORPUSCULAR HEMOGLOBIN 32 PG (26.0-33.0); MEAN CORPUSCULAR HGB CONC 33 g/dl (31.0-36.0); MEAN CORPUSCULAR VOLUME 97 fL (80-96); MONOCYTES # (AUTO) 0.1 K/uL (0.1-1.30); MONOCYTES % (AUTO) 2.3 % (2.0-12.0); NEUTROPHILS # (AUTO) 3.6 K/uL (1.8-8.9); NEUTROPHILS % (AUTO) 94.2 % (43.0-81.0); RED BLOOD CELL COUNT(AUTO) 2.78 MIL/uL (4.5-6.0); RED CELL DISTRIBUTION WIDTH 18.7 % (11.5-15.0); WHITE BLOOD COUNT (AUTO) 3.8 K/uL (4.3-11.0)
[2024-10-10 05:15] LABS: BILIRUBIN,TOTAL 0.7 mg/dL (0.2-1.0); CALCIUM, SERUM 8.3 mg/dL (8.5-10.1); POTASSIUM 4.5 mmol/L (3.5-5.1); TOTAL PROTEIN, SERUM 4.7 g/dL (6.4-8.2)
[2024-10-10 05:27] LABS: ALBUMIN 1.3 g/dL (3.4-5.0)
[2024-10-10 05:43] LABS: INR 1.08 (0.91-1.10); PARTIAL THROMBOPLASTIN TIME 35.5 SEC (24.3-34.3); PROTHROMBIN TIME 11.4 SECS (9.2-11.1)
[2024-10-10 05:48] LABS: D-DIMER 27.85 mg/L(FEU (0.17-0.50)
[2024-10-10 05:49] LABS: PLATELET COUNT (AUTO) 27 K/uL (150-450)
[2024-10-10 06:20] LABS: NEUTROPHILS % (MANUAL) 90 (42-76)
[2024-10-10 06:21] LABS: ANISOCYTOSIS 1+; BAND % (MANUAL) 5 % (0.0-5.0); BASOPHILS % (MANUAL) 0 % (0.0-2.0); EOSINOPHILS % (MANUAL) 0 % (0-4); LYMPHOCYTES % (MANUAL) 2 % (16-48); MONOCYTES % (MANUAL) 3 % (0-11.0); PLATELET ESTIMATE DECREASED; TEAR DROP CELLS FEW
[2024-10-10 09:50] LABS: ABG BASE EXCESS -5.2 mmol/L (-2.0-3.0); ABG OXYGEN SATURATION 89.1 % (94.0-98.0); ABG PCO2 46.5 mmHg (35.0-48.0); ABG PO2 63.5 mmHg (83.0-108.0); ABG TOTAL HEMOGLOBIN 9.7 G/dL (13.5-17.5); COHb 0.3 % (0.5-1.5); MetHb 0.2 % (0.0-1.5); O2Hb 88.7 % (94.0-97.0); PEEP,BG 8 cm H2O; SITE, ABG RIGHT BRACHIAL; VT, ABG 542 mL
[2024-10-10] MEDS: ACETAMINOPHEN 325 MG TABLET PO ONE (13:00)
[2024-10-10] MEDS: diphenhydrAMINE HCL 50 MG/ML VIAL IV ONE (13:50)
[2024-10-10] MEDS ORDERED: ALTEPLASE CATHFLO 2 MG/VIAL XX ONE ×3 (20:30)
[2024-10-10] MEDS: AMIODARONE HCL 200 MG TABLET NG SCH (21:19)
[2024-10-10] MEDS: glipiZIDE 10 MG TABLET NG SCH (21:20)
[2024-10-10] MEDS: FERROUS SULFATE UDC 300 MG/5 ML UDC NG SCH (21:20)
[2024-10-10] MEDS: NATEGLINIDE 60 MG TABLET NG SCH (21:21)
[2024-10-10] MEDS: MIDODRINE HCL (5MG) 5 MG TABLET PO SCH (21:21)
[2024-10-10] MEDS: SEVELAMER CARBONATE 800 MG POWD.PACK NG SCH (21:21)
[2024-10-11] VITALS (59 sets, daily range): BP systolic 90–143; BP diastolic 36–49; TEMP 97.5–98; O2SAT 92–95
[2024-10-11 05:06] LABS: BASOPHILS % (AUTO) 0.5 % (0.0-2.0); HEMATOCRIT 22 % (39-51); HEMOGLOBIN 7.3 g/dL (13.5-17.5); LYMPHOCYTES # (AUTO) 0.1 K/uL (0.8-4.8); LYMPHOCYTES % (AUTO) 2.7 % (20.0-44.0); MEAN CORPUSCULAR HEMOGLOBIN 33 PG (26.0-33.0); MEAN CORPUSCULAR HGB CONC 34 g/dl (31.0-36.0); MEAN CORPUSCULAR VOLUME 97 fL (80-96); MONOCYTES # (AUTO) 0.1 K/uL (0.1-1.30); MONOCYTES % (AUTO) 3.9 % (2.0-12.0); NEUTROPHILS # (AUTO) 2.9 K/uL (1.8-8.9); NEUTROPHILS % (AUTO) 92.9 % (43.0-81.0); RED BLOOD CELL COUNT(AUTO) 2.24 MIL/uL (4.5-6.0); RED CELL DISTRIBUTION WIDTH 18.9 % (11.5-15.0); WHITE BLOOD COUNT (AUTO) 3.1 K/uL (4.3-11.0)
[2024-10-11 05:20] LABS: PLATELET COUNT (AUTO) 30 K/uL (150-450)
[2024-10-11 05:59] LABS: ANISOCYTOSIS 1+; BAND % (MANUAL) 3 % (0.0-5.0); BASOPHILS % (MANUAL) 0 % (0.0-2.0); EOSINOPHILS % (MANUAL) 0 % (0-4); LYMPHOCYTES % (MANUAL) 5 % (16-48); MONOCYTES % (MANUAL) 3 % (0-11.0); NEUTROPHILS % (MANUAL) 89 (42-76); PLATELET ESTIMATE DECREASED; TEAR DROP CELLS FEW
[2024-10-11 07:36] LABS: INR 1.13 (0.91-1.10); PROTHROMBIN TIME 11.9 SECS (9.2-11.1)
[2024-10-11 07:39] LABS: ALBUMIN 1.9 g/dL (3.4-5.0); BILIRUBIN,TOTAL 0.6 mg/dL (0.2-1.0); POTASSIUM 4.2 mmol/L (3.5-5.1); TOTAL PROTEIN, SERUM 4.6 g/dL (6.4-8.2)
[2024-10-11 08:17] LABS: D-DIMER 28.02 mg/L(FEU (0.17-0.50); PARTIAL THROMBOPLASTIN TIME 32.7 SEC (24.3-34.3)
[2024-10-12] VITALS (106 sets, daily range): BP systolic 92–145; BP diastolic 37–61; TEMP 97.6–98.2; O2SAT 90–100
[2024-10-12 04:47] LABS: BASOPHILS % (AUTO) 0.2 % (0.0-2.0); HEMATOCRIT 22 % (39-51); HEMOGLOBIN 7.1 g/dL (13.5-17.5); LYMPHOCYTES # (AUTO) 0.1 K/uL (0.8-4.8); MEAN CORPUSCULAR HEMOGLOBIN 32 PG (26.0-33.0); MEAN CORPUSCULAR HGB CONC 33 g/dl (31.0-36.0); MEAN CORPUSCULAR VOLUME 97 fL (80-96); MONOCYTES # (AUTO) 0.1 K/uL (0.1-1.30); MONOCYTES % (AUTO) 3.2 % (2.0-12.0); NEUTROPHILS # (AUTO) 4.3 K/uL (1.8-8.9); NEUTROPHILS % (AUTO) 94.6 % (43.0-81.0); RED BLOOD CELL COUNT(AUTO) 2.23 MIL/uL (4.5-6.0); RED CELL DISTRIBUTION WIDTH 18.6 % (11.5-15.0); WHITE BLOOD COUNT (AUTO) 4.6 K/uL (4.3-11.0)
[2024-10-12 04:50] LABS: PLATELET COUNT (AUTO) 20 K/uL (150-450)
[2024-10-12 04:56] LABS: ALBUMIN 1.6 g/dL (3.4-5.0); BILIRUBIN,TOTAL 0.5 mg/dL (0.2-1.0); CALCIUM, SERUM 8.2 mg/dL (8.5-10.1); CREATININE 3.7 mg/dL (0.6-1.3); POTASSIUM 4.9 mmol/L (3.5-5.1); TOTAL PROTEIN, SERUM 4.4 g/dL (6.4-8.2)
[2024-10-12 05:22] LABS: INR 1.13 (0.91-1.10); PARTIAL THROMBOPLASTIN TIME 30.5 SEC (24.3-34.3); PROTHROMBIN TIME 11.9 SECS (9.2-11.1)
[2024-10-12 05:30] LABS: D-DIMER 26.06 mg/L(FEU (0.17-0.50)
[2024-10-12 05:51] LABS: ANISOCYTOSIS 1+; HYPOCHROMASIA 1+; LYMPHOCYTES % (MANUAL) 3 % (16-48); MONOCYTES % (MANUAL) 6 % (0-11.0); NEUTROPHILS % (MANUAL) 91 (42-76); PLATELET ESTIMATE DECREASED
[2024-10-12 08:53] LABS: ABG BASE EXCESS -7.6 mmol/L (-2.0-3.0); ABG OXYGEN SATURATION 84.5 % (94.0-98.0); ABG PCO2 48.1 mmHg (35.0-48.0); ABG PH 7.226 (7.350-7.450); ABG PO2 58.7 mmHg (83.0-108.0); ABG TOTAL HEMOGLOBIN 7.4 G/dL (13.5-17.5); COHb 1.1 % (0.5-1.5); MetHb 0.3 % (0.0-1.5); O2Hb 83.3 % (94.0-97.0); PEEP,BG 8 cm H2O; SITE, ABG RIGHT RADIAL; VT, ABG 550 mL
[2024-10-13] VITALS (107 sets, daily range): BP systolic 83–164; BP diastolic 34–81; TEMP 97.5–97.9; O2SAT 91–98
[2024-10-13 05:26] LABS: INR 1.08 (0.91-1.10); PARTIAL THROMBOPLASTIN TIME 33.2 SEC (24.3-34.3); PROTHROMBIN TIME 11.4 SECS (9.2-11.1)
[2024-10-13 05:27] LABS: D-DIMER 23.36 mg/L(FEU (0.17-0.50)
[2024-10-13 05:39] LABS: ALBUMIN 1.9 g/dL (3.4-5.0); BILIRUBIN,TOTAL 0.6 mg/dL (0.2-1.0); CALCIUM, SERUM 8.4 mg/dL (8.5-10.1); CREATININE 3.4 mg/dL (0.6-1.3); POTASSIUM 4.6 mmol/L (3.5-5.1); TOTAL PROTEIN, SERUM 4.6 g/dL (6.4-8.2)
[2024-10-13 06:33] LABS: BASOPHILS % (AUTO) 0.5 % (0.0-2.0); LYMPHOCYTES # (AUTO) 0.1 K/uL (0.8-4.8); MEAN CORPUSCULAR HEMOGLOBIN 32 PG (26.0-33.0); MEAN CORPUSCULAR HGB CONC 33 g/dl (31.0-36.0); MEAN CORPUSCULAR VOLUME 98 fL (80-96); MONOCYTES # (AUTO) 0.2 K/uL (0.1-1.30); NEUTROPHILS # (AUTO) 5.7 K/uL (1.8-8.9); NEUTROPHILS % (AUTO) 94.5 % (43.0-81.0); RED BLOOD CELL COUNT(AUTO) 1.54 MIL/uL (4.5-6.0); WHITE BLOOD COUNT (AUTO) 6.1 K/uL (4.3-11.0)
[2024-10-13 06:34] LABS: HEMATOCRIT 15 % (39-51); PLATELET COUNT (AUTO) 25 K/uL (150-450)
[2024-10-13 08:10] LABS: BAND % (MANUAL) 3 % (0.0-5.0); LYMPHOCYTES % (MANUAL) 3 % (16-48); MONOCYTES % (MANUAL) 1 % (0-11.0); NEUTROPHILS % (MANUAL) 93 (42-76); PLATELET ESTIMATE DECREASED
[2024-10-13 08:11] LABS: ANISOCYTOSIS 1+; HYPOCHROMASIA 1+
[2024-10-13 08:25] LABS: ABG BASE EXCESS -5.2 mmol/L (-2.0-3.0); ABG OXYGEN SATURATION 88.7 % (94.0-98.0); ABG PCO2 42.9 mmHg (35.0-48.0); ABG PH 7.301 (7.350-7.450); ABG PO2 64.6 mmHg (83.0-108.0); ABG TOTAL HEMOGLOBIN 5.7 G/dL (13.5-17.5); COHb 0.8 % (0.5-1.5); MetHb 0.5 % (0.0-1.5); O2Hb 87.5 % (94.0-97.0); PEEP,BG 10 cm H2O; SITE, ABG RIGHT RADIAL; VT, ABG 575 mL
[2024-10-13 16:46] LABS: BASOPHILS % (AUTO) 0.1 % (0.0-2.0); EOSINOPHILS % (AUTO) 0.1 % (0.0-6.0); HEMATOCRIT 25 % (39-51); HEMOGLOBIN 8.7 g/dL (13.5-17.5); LYMPHOCYTES # (AUTO) 0.1 K/uL (0.8-4.8); LYMPHOCYTES % (AUTO) 1.2 % (20.0-44.0); MEAN CORPUSCULAR HEMOGLOBIN 33 PG (26.0-33.0); MEAN CORPUSCULAR HGB CONC 35 g/dl (31.0-36.0); MEAN CORPUSCULAR VOLUME 95 fL (80-96); MONOCYTES # (AUTO) 0.3 K/uL (0.1-1.30); MONOCYTES % (AUTO) 2.9 % (2.0-12.0); NEUTROPHILS # (AUTO) 10.5 K/uL (1.8-8.9); NEUTROPHILS % (AUTO) 95.7 % (43.0-81.0); RED BLOOD CELL COUNT(AUTO) 2.61 MIL/uL (4.5-6.0); RED CELL DISTRIBUTION WIDTH 15.8 % (11.5-15.0)
[2024-10-13 17:25] LABS: PLATELET COUNT (AUTO) 22 K/uL (150-450)
[2024-10-13 22:04] LABS: BAND % (MANUAL) 4 % (0.0-5.0); LYMPHOCYTES % (MANUAL) 5 % (16-48); MONOCYTES % (MANUAL) 6 % (0-11.0); MYELOCYTES % 5 % (0-0); NEUTROPHILS % (MANUAL) 80 (42-76); PLATELET ESTIMATE DECRE
[2024-10-13 22:05] LABS: ANISOCYTOSIS 1+; OVALOCYTES 1+; TARGET CELLS 1+
[2024-10-14] VITALS (98 sets, daily range): BP systolic 92–129; BP diastolic 32–54; TEMP 97.5–97.9; O2SAT 91–98
[2024-10-14 05:13] LABS: BASOPHILS # (AUTO) 0.1 K/uL (0.0-0.2); BASOPHILS % (AUTO) 0.4 % (0.0-2.0); EOSINOPHILS % (AUTO) 0.1 % (0.0-6.0); HEMATOCRIT 24 % (39-51); HEMOGLOBIN 8.2 g/dL (13.5-17.5); LYMPHOCYTES # (AUTO) 0.2 K/uL (0.8-4.8); LYMPHOCYTES % (AUTO) 1.1 % (20.0-44.0); MEAN CORPUSCULAR HEMOGLOBIN 32 PG (26.0-33.0); MEAN CORPUSCULAR HGB CONC 34 g/dl (31.0-36.0); MEAN CORPUSCULAR VOLUME 97 fL (80-96); MONOCYTES # (AUTO) 0.5 K/uL (0.1-1.30); MONOCYTES % (AUTO) 3.2 % (2.0-12.0); NEUTROPHILS # (AUTO) 13.7 K/uL (1.8-8.9); NEUTROPHILS % (AUTO) 95.2 % (43.0-81.0); RED BLOOD CELL COUNT(AUTO) 2.52 MIL/uL (4.5-6.0); RED CELL DISTRIBUTION WIDTH 16.4 % (11.5-15.0); WHITE BLOOD COUNT (AUTO) 14.4 K/uL (4.3-11.0)
[2024-10-14 05:35] LABS: PARTIAL THROMBOPLASTIN TIME 27.9 SEC (24.3-34.3); PROTHROMBIN TIME 10.6 SECS (9.2-11.1)
[2024-10-14 05:37] LABS: PLATELET COUNT (AUTO) 26 K/uL (150-450)
[2024-10-14 05:38] LABS: CALCIUM, SERUM 8.8 mg/dL (8.5-10.1); CREATININE 3.8 mg/dL (0.6-1.3)
[2024-10-14 05:45] LABS: D-DIMER 29.19 mg/L(FEU (0.17-0.50)
[2024-10-14 06:46] LABS: BAND % (MANUAL) 1 % (0.0-5.0); LYMPHOCYTES % (MANUAL) 2 % (16-48); MONOCYTES % (MANUAL) 3 % (0-11.0); NEUTROPHILS % (MANUAL) 94 (42-76)
[2024-10-14 06:47] LABS: ANISOCYTOSIS 1+; PLATELET ESTIMATE DECREASED
[2024-10-15] VITALS (61 sets, daily range): BP systolic 69–126; BP diastolic 37–47; TEMP 97–97.8; O2SAT 88–97
[2024-10-15] MEDS ORDERED: ALTEPLASE CATHFLO 2 MG/VIAL ONE (00:39)
[2024-10-15] MEDS: ALTEPLASE CATHFLO 2 MG/VIAL XX ONE (01:15)
[2024-10-15 05:35] LABS: BASOPHILS # (AUTO) 0.1 K/uL (0.0-0.2); BASOPHILS % (AUTO) 0.5 % (0.0-2.0); HEMATOCRIT 21 % (39-51); HEMOGLOBIN 7.1 g/dL (13.5-17.5); LYMPHOCYTES # (AUTO) 0.2 K/uL (0.8-4.8); LYMPHOCYTES % (AUTO) 0.9 % (20.0-44.0); MEAN CORPUSCULAR HEMOGLOBIN 32 PG (26.0-33.0); MEAN CORPUSCULAR HGB CONC 34 g/dl (31.0-36.0); MEAN CORPUSCULAR VOLUME 96 fL (80-96); MONOCYTES # (AUTO) 0.5 K/uL (0.1-1.30); MONOCYTES % (AUTO) 2.5 % (2.0-12.0); NEUTROPHILS % (AUTO) 96.1 % (43.0-81.0); RED CELL DISTRIBUTION WIDTH 16.3 % (11.5-15.0); WHITE BLOOD COUNT (AUTO) 18.8 K/uL (4.3-11.0)
[2024-10-15 05:44] LABS: PLATELET COUNT (AUTO) 31 K/uL (150-450)
[2024-10-15 05:48] LABS: CALCIUM, SERUM 8.7 mg/dL (8.5-10.1); CREATININE 3.9 mg/dL (0.6-1.3); POTASSIUM 5.3 mmol/L (3.5-5.1)
[2024-10-15 06:00] LABS: FIBRINOGEN ACTIVITY 335 Mg/dL (213-485); INR 1.08 (0.91-1.10); PARTIAL THROMBOPLASTIN TIME 37.7 SEC (24.3-34.3); PROTHROMBIN TIME 11.4 SECS (9.2-11.1)
[2024-10-15 06:02] LABS: D-DIMER > 35.20 mg/L(FEU (0.17-0.50)
[2024-10-15 06:43] LABS: ANISOCYTOSIS 1+; BAND % (MANUAL) 6 % (0.0-5.0); BASOPHILS % (MANUAL) 0 % (0.0-2.0); EOSINOPHILS % (MANUAL) 0 % (0-4); LYMPHOCYTES % (MANUAL) 2 % (16-48); MONOCYTES % (MANUAL) 3 % (0-11.0); NEUTROPHILS % (MANUAL) 89 (42-76); PLATELET ESTIMATE DECREASED
[2024-10-15] MEDS ORDERED: ALTEPLASE CATHFLO 2 MG/VIAL XX ONE (10:00)
[2024-10-15] MEDS: SODIUM ZIRCONIUM CYCLOSILICATE 10 GM POWD.PACK PO SCH (11:26)
[2024-10-15] MEDS ORDERED: MORPHINE SULFATE PF DRIP 250 MG in IV D5W 240 ML IV PRN (15:00)
[2024-10-15] MEDS ORDERED: DC PROPOFOL WHEN EXTUBATED XX PRN (15:00)
[2024-10-15] MEDS: LORAZEPAM INJ 2 MG/ML VIAL IV PRN (15:32)
== END 2024-10-15 15:46 | DRG 870 ==
LOC: ER 17:22 → TRANSITION 09-11 00:13 → ICU 09-11 19:25 → TELE-TD 09-20 19:15 → TELE1 09-21 11:36 → ICU 09-29 09:10
PROVIDERS: ADMIT Nurse Practitioner Family
PROC: 5A1D70Z Performance of Urinary Filtration, Intermittent, Less than 6 Hours Per Day (ICD-10-PCS; 2024-09-15)
PROC: 06HY33Z Insertion of Infusion Device into Lower Vein, Percutaneous Approach (ICD-10-PCS; principal; 2024-09-16)
PROC: 06HY33Z Insertion of Infusion Device into Lower Vein, Percutaneous Approach (ICD-10-PCS; 2024-09-16)
PROC: 30233N1 Transfusion of Nonautologous Red Blood Cells into Peripheral Vein, Percutaneous Approach (ICD-10-PCS; 2024-09-18)
PROC: 30233M1 Transfusion of Nonautologous Plasma Cryoprecipitate into Peripheral Vein, Percutaneous Approach (ICD-10-PCS; 2024-09-22)
PROC: 30233R1 Transfusion of Nonautologous Platelets into Peripheral Vein, Percutaneous Approach (ICD-10-PCS; 2024-09-26)
PROC: 5A09557 Assistance with Respiratory Ventilation, Greater than 96 Consecutive Hours, Continuous Positive Airway Pressure (ICD-10-PCS; 2024-09-29)
PROC: 5A1955Z Respiratory Ventilation, Greater than 96 Consecutive Hours (ICD-10-PCS; 2024-10-02)
PROC: 0BH17EZ Insertion of Endotracheal Airway into Trachea, Via Natural or Artificial Opening (ICD-10-PCS; 2024-10-02)
DX: A41.9 Sepsis, unspecified organism (principal); E43 Unspecified severe protein-calorie malnutrition; I50.23 Acute on chronic systolic (congestive) heart failure; J10.08 Influenza due to other identified influenza virus with other specified pneumonia; J15.9 Unspecified bacterial pneumonia; J96.01 Acute respiratory failure with hypoxia; N17.0 Acute kidney failure with tubular necrosis; R65.21 Severe sepsis with septic shock; I21.A1 Myocardial infarction type 2; E87.1 Hypo-osmolality and hyponatremia; J90 Pleural effusion, not elsewhere classified; N39.0 Urinary tract infection, site not specified; D61.818 Other pancytopenia; D62 Acute posthemorrhagic anemia; E87.4 Mixed disorder of acid-base balance; R45.851 Suicidal ideations; J81.1 Chronic pulmonary edema; I82.611 Acute embolism and thrombosis of superficial veins of right upper extremity; D68.9 Coagulation defect, unspecified; I13.10 Hypertensive heart and chronic kidney disease without heart failure, with stage 1 through stage 4 chronic kidney disease, or unspecified chronic kidney disease; N18.9 Chronic kidney disease, unspecified; Z66 Do not resuscitate; Z51.5 Encounter for palliative care; Z20.822 Contact with and (suspected) exposure to COVID-19; E11.40 Type 2 diabetes mellitus with diabetic neuropathy, unspecified; E11.22 Type 2 diabetes mellitus with diabetic chronic kidney disease; E11.51 Type 2 diabetes mellitus with diabetic peripheral angiopathy without gangrene; Z78.9 Other specified health status; E78.5 Hyperlipidemia, unspecified; Z91.81 History of falling; D63.8 Anemia in other chronic diseases classified elsewhere; E88.09 Other disorders of plasma-protein metabolism, not elsewhere classified; Z91.158 Patient's noncompliance with renal dialysis for other reason; Z89.429 Acquired absence of other toe(s), unspecified side; Z87.891 Personal history of nicotine dependence; Z87.01 Personal history of pneumonia (recurrent); Z74.01 Bed confinement status; Y95 Nosocomial condition; T38.0X5A Adverse effect of glucocorticoids and synthetic analogues, initial encounter; Y92.9 Unspecified place or not applicable; Z79.4 Long term (current) use of insulin; Z79.84 Long term (current) use of oral hypoglycemic drugs; Z79.899 Other long term (current) drug therapy; L89.626 Pressure-induced deep tissue damage of left heel; L97.529 Non-pressure chronic ulcer of other part of left foot with unspecified severity; R13.10 Dysphagia, unspecified; M89.8X9 Other specified disorders of bone, unspecified site; L89.612 Pressure ulcer of right heel, stage 2; K52.9 Noninfective gastroenteritis and colitis, unspecified; B95.2 Enterococcus as the cause of diseases classified elsewhere; E87.5 Hyperkalemia; L84 Corns and callosities; I48.91 Unspecified atrial fibrillation; F32.A Depression, unspecified; I80.8 Phlebitis and thrombophlebitis of other sites; F39 Unspecified mood [affective] disorder; R41.0 Disorientation, unspecified; Z86.718 Personal history of other venous thrombosis and embolism; L89.896 Pressure-induced deep tissue damage of other site; S30.0XXA Contusion of lower back and pelvis, initial encounter; X58.XXXA Exposure to other specified factors, initial encounter
CPT/HCPCS: 31720; 36415; 36600; 70450-TC; 71045-TC; 71260-TC; 73701-TC; 75989-TC; 76770-TC; 80048-TC; 80053-TC; 80076-TC; 80164-TC; 80202-TC; 81001; 82140-TC; 82247-TC; 82248-TC; 82272-TC; 82378; 82533; 82550-TC; 82553; 82570-TC; 82607-TC; 82728-TC; 82784; 82803-TC; 82962-TC; 83540-TC; 83605-TC; 83615-TC; 83735-TC; 83880; 83921; 83970; 84100-TC; 84155; 84165; 84300-TC; 84478-TC; 84484-TC; 85025-TC; 85027-TC; 85396; 85730-TC; 86022; 86225; 86235; 86334; 86431-TC; 86704; 86705; 86706; 86803; 86850-TC; 86880-TC; 87040-TC; 87081-TC; 87086-TC; 87340; 90935-TC; 92526; 92611-TC; 93307-TC; 93970-TC; 93971-TC; 94002-TC; 94003-TC; 94760-TC; 94762-TC; 94799-TC; 99082-TC; A4216; A4223; A6403; A7526; G0378; J0282; J0360; J0692; J0885; J1200; J1644; J1650; J1720; J1815; J1940; J2060; J2185; J2250; J2470; J2919; J2997; J3010; J3370; J3490; J7030; J7040; J7050; J7060; P9012; P9016; P9034; P9047; Q9966; Q9967